=== PATIENT | female | born 1965 | race Caucasian/White ===

== ENCOUNTER → 2020-12-26 16:16 | Outpatient (CLI) | payer OTHER, SELFPAY ==
--- NOTE | 2020-12-26 16:18 | US_ITS ---
STUDY: ULTRASOUND OF THE FEMALE PELVIS - COMPLETE REASON FOR EXAM: Female, 55 years old. abnormal uterine bleeding LMP: Unknown. TECHNIQUE: Transabdominal and Transvaginal TECHNICAL QUALITY: Adequate. COMPARISON: None. FINDINGS: The uterus is in a midline position. The uterus measures 10.3 x 6.7 x 5.0 cm. Normal uterine cervix. The endometrium measures 4.1 mm in thickness, and is hyperechoic. There is no demonstrated endometrial mass. Diffusely heterogeneous uterine myometrium with small subendometrial cysts measuring 2-3 mm. A discrete myometrial mass is not confirmed on the provided images, however. I.U.D. - The patient does not have an I.U.D. The right ovary is non-visualized. No adnexal masses. The left ovary is non-visualized. No adnexal masses. There is no fluid in the cul-de-sac. Visualized urinary bladder is unremarkable. US/Transvaginal Non- IMPRESSION: 1. Diffusely heterogeneous uterine myometrium with small (2-3 mm) subendometrial cysts raises possibility of adenomyosis but can also be seen in uterine fibroids. Evaluation with pelvic MRI without and with IV contrast suggested for better characterization. 2. No discrete endometrial mass. 3. Nonvisualized ovaries. Electronically Signed: Magno Kaiser MD ([place]) at 9:46 EDT , Service support ,
--- NOTE | 2020-12-26 16:18 | US_ITS ---
STUDY: ULTRASOUND OF THE FEMALE PELVIS - COMPLETE REASON FOR EXAM: Female, 55 years old. abnormal uterine bleeding LMP: Unknown. TECHNIQUE: Transabdominal and Transvaginal TECHNICAL QUALITY: Adequate. COMPARISON: None. FINDINGS: The uterus is in a midline position. The uterus measures 10.3 x 6.7 x 5.0 cm. Normal uterine cervix. The endometrium measures 4.1 mm in thickness, and is hyperechoic. There is no demonstrated endometrial mass. Diffusely heterogeneous uterine myometrium with small subendometrial cysts measuring 2-3 mm. A discrete myometrial mass is not confirmed on the provided images, however. I.U.D. - The patient does not have an I.U.D. The right ovary is non-visualized. No adnexal masses. The left ovary is non-visualized. No adnexal masses. There is no fluid in the cul-de-sac. Visualized urinary bladder is unremarkable. US/Pelvic (Non ) IMPRESSION: 1. Diffusely heterogeneous uterine myometrium with small (2-3 mm) subendometrial cysts raises possibility of adenomyosis but can also be seen in uterine fibroids. Evaluation with pelvic MRI without and with IV contrast suggested for better characterization. 2. No discrete endometrial mass. 3. Nonvisualized ovaries. Electronically Signed: Magno Kaiser MD ([place]) at 9:46 EDT , Service support ,
== END ==
PROVIDERS: PCP Family Medicine; Referring Provider Nurse Practitioner Women's Health; Visit Provider Nurse Practitioner Women's Health
DX: N95.0 Postmenopausal bleeding (principal)
CPT/HCPCS: 76830; 76856

== ENCOUNTER → 2021-02-24 15:51 | Outpatient (CLI) | payer OTHER, SELFPAY ==
--- NOTE | 2021-02-24 15:54 | US_ITS ---
STUDY: ULTRASOUND OF THE FEMALE PELVIS - COMPLETE REASON FOR EXAM: Female, 55 years old. PMB TECHNIQUE: Endovaginal. Transvaginal US was obtained to better visualized the ovaries. COMPARISON: 12.26.20 FINDINGS: The uterus is retroflexed and is in a midline position. The uterus measures 7.5x7.2 cm. There is a Nabothian cyst of the cervix. The endometrium measures 3.5 mm in thickness, and is hyperechoic. There is no demonstrated endometrial mass. Fibroid measures 12 x 9 mm. I.U.D. - The patient does not have an I.U.D. cystic area in the myometrium measures 4 x 3 mm. The right ovary is visualized. The right ovary measures 2 x 1.4 cm. There is no right ovarian cyst or ovarian mass. There is no visualized right adnexal mass or complex lesion. There is normal arterial and normal venous vascularity. The left ovary is visualized. The left ovary measures 3 x 1.4 cm. There is no left ovarian cyst or ovarian mass. There is no visualized left adnexal mass or complex lesion. There is normal arterial and normal venous vascularity. There is no fluid in the cul-de-sac. Urinary bladder is 392 cc. US/Transvaginal Non- IMPRESSION: There are Nabothian cysts of the cervix. Fibroid uterus. The urinary bladder is distended. This can suggest urinary retention. Electronically Signed: Brandon Mendoza MD at 20:57 EST , Service support ,
--- NOTE | 2021-02-24 15:54 | US_ITS ---
STUDY: ULTRASOUND OF THE FEMALE PELVIS - COMPLETE REASON FOR EXAM: Female, 55 years old. PMB TECHNIQUE: Endovaginal. Transvaginal US was obtained to better visualized the ovaries. COMPARISON: 12.26.20 FINDINGS: The uterus is retroflexed and is in a midline position. The uterus measures 7.5x7.2 cm. There is a Nabothian cyst of the cervix. The endometrium measures 3.5 mm in thickness, and is hyperechoic. There is no demonstrated endometrial mass. Fibroid measures 12 x 9 mm. I.U.D. - The patient does not have an I.U.D. cystic area in the myometrium measures 4 x 3 mm. The right ovary is visualized. The right ovary measures 2 x 1.4 cm. There is no right ovarian cyst or ovarian mass. There is no visualized right adnexal mass or complex lesion. There is normal arterial and normal venous vascularity. The left ovary is visualized. The left ovary measures 3 x 1.4 cm. There is no left ovarian cyst or ovarian mass. There is no visualized left adnexal mass or complex lesion. There is normal arterial and normal venous vascularity. There is no fluid in the cul-de-sac. Urinary bladder is 392 cc. US/Pelvic (Non ) IMPRESSION: There are Nabothian cysts of the cervix. Fibroid uterus. The urinary bladder is distended. This can suggest urinary retention. Electronically Signed: Brandon Mendoza MD at 20:57 EST , Service support ,
== END ==
PROVIDERS: PCP Family Medicine; Referring Provider Obstetrics & Gynecology; Visit Provider Obstetrics & Gynecology
DX: N95.0 Postmenopausal bleeding (principal)
CPT/HCPCS: 76830; 76856

== ENCOUNTER 2021-06-20 17:15 | Outpatient (CLI) | payer OTHER, SELFPAY ==
--- NOTE | 2021-06-20 16:47 | BI_ITS ---
MAMMOGRAPHY - BILATERAL SCREENING REASON FOR EXAM: Female, 55 years old. Routine annual screening examination. PERTINENT HISTORY: Non-contributory. TECHNIQUE: Digital bilateral breast kalen (3D mammographic acquisition) in the CC and MLO projections. 2-D mediolateral oblique (MLO) and craniocaudad (CC) views of both breasts were obtained. CAD: Full Field Digital Mammography with Computer Added Detection was performed. COMPARISON: Comparison is made with prior outside examination dated 03/20/2017. FINDINGS: Breast Composition: The breasts are heterogeneously dense, which may obscure small masses. There are no dominant masses or suspicious calcifications. Stable benign-appearing bilateral axillary lymph nodes. No other significant abnormalities are identified. There has been no significant change since the prior study. BI/SCRN MAMM (CAD)W/KALEN BILAT IMPRESSION: Stable bilateral screening mammogram. Yearly follow-up mammogram recommended. (A) ASSESSMENT CATEGORY: BIRADS Category 1: Negative. A letter regarding these results will be sent to the patient by the facility within 30 days. Approximately 10% of breast cancers are not detected by mammography. A normal mammogram should not delay biopsy of a clinically suspicious abnormality. [id number] Electronically Signed: Winston Yi MD at 8:37 EST ,
== END 2021-06-20 23:59 | disposition home or self-care (01) ==
LOC: OPBI 06-21 07:33
PROVIDERS: PCP Family Medicine; Visit Provider Nurse Practitioner Women's Health
DX: Z12.31 Encounter for screening mammogram for malignant neoplasm of breast (principal)
CPT/HCPCS: 77063; 77067

== ENCOUNTER → 2022-01-29 | Outpatient (CLI) | payer OTHER, SELFPAY ==
--- NOTE | 2022-01-29 18:30 | US_ITS ---
STUDY: THYROID ULTRASOUND REASON FOR EXAM: Female, 56 years old. Abnormal thyroid function tests TECHNIQUE: Ultrasound evaluation of the thyroid was performed with real-time and static clayton-scale imaging. COMPARISON: None. FINDINGS: RIGHT LOBE: The right lobe of the thyroid gland measures 4 x 1.2 x 0.9 cm. There is a homogeneous echotexture. There is a anechoic 3 mm cyst. No suspicious solid hypoechoic nodule LEFT LOBE: The left lobe of the thyroid gland measures 5 x 2.4 x 1.8 cm. There is a homogeneous echotexture. There are 2 separate solid/cystic complex nodules with microcalcifications, larger measures 4.3 x 2.7 x 1.8 cm, smaller 1.5 x 1.1 x 0.6 cm. ISTHMUS: The isthmus measures 1.4 mm. The regional lymph nodes are normal. US/Thyroid IMPRESSION: Homogeneous thyroid gland with solid/cystic nodules in the left lobe and simple cyst in the right lobe. No suspicious solid nodule noted. No specific follow-up needed. Electronically Signed: Avni Sahni MD at 9:35 EDT ,
== END | disposition home or self-care (01) ==
LOC: US 18:26
PROVIDERS: PCP Family Medicine
DX: E04.2 Nontoxic multinodular goiter (principal)
CPT/HCPCS: 76536

== ENCOUNTER → 2022-06-25 | Outpatient (CLI) | payer OTHER, SELFPAY ==
[2022-06-25 15:22] LABS: Absolute Lymphocyte Count 1.52 X10^3/uL (0.83-4.51); Absolute Neutrophil Count 5.5 X10^3/uL (2.0-7.7); Basophil# 0.04 X10^3/uL; Basophil% 0.5 % (0-1); Eosinophil# 0.19 X10^3/uL; Eosinophils% 2.4 % (0-5); Hematocrit 49.6 % (37-47); Hemoglobin 16.4 g/dL (12.0-15.0); Lymphocyte # 1.52 X10^3/ul (0.83-4.51); Lymphocyte % 19.4 % (19-41); Mean Corp Hgb Conc 33.1 g/dL (32-36); Mean Corpuscular Hgb 31.1 pg (27.0-32.0); Mean Corpuscular Volume 94.1 fL (81-99); Mean Platelet Vol. 10.5 fl (6.2-12.0); Monocyte# 0.62 X10^3/uL; Monocyte% 7.9 % (0-10); NRBC Flagged by Analyzer 0 % (0-5); Neutrophil # 5.45 X10^3/uL (2.7-7.7); Neutrophil % 69.5 % (47-70); Platelet Count 399 K/mm3 (150-450); RBC Distribution Width CV 14.6 % (11.6-14.6); RBC Distribution Width SD 50.6 fl (35.1-43.9); Red Blood Count 5.27 M/mm3 (4.2-5.4); White Blood Count 7.8 K/mm3 (4.4-11.0)
[2022-06-25 15:40] LABS: ALB/GLOB Ratio 0.7 RATIO (0.9-2.4); AST(SGOT) 38 U/L (15-37); Alanine Aminotransfer ALT/SGPT 39 U/L (13-56); Albumin, Serum 3.3 g/dL (3.2-5.0); Alkaline Phosphatase 110 U/L (45-117); Anion Gap 10 (5-15); BUN 18 mg/dL (7-18); BUN/Creat Ratio 21.8 RATIO (10-20); Calcium,Total 9.3 mg/dL (8.5-10.1); Chloride 103 mmol/L (98-107); Creatinine, Serum 0.82 mg/dL (0.55-1.02); EST Glomerular Filtration Rate 76 mL/min (>60); Est Glom Filt Rate - Afr Amer 92 mL/min (>60); Glucose 94 mg/dL (74-106); Protein, Total 8.3 g/dL (6.4-8.2); Sodium Level 136 mmol/L (136-145)
== END | disposition home or self-care (01) ==
LOC: MFPLAB 11:56
PROVIDERS: PCP Family Medicine; Visit Provider Family Medicine
DX: Z01.818 Encounter for other preprocedural examination (principal)
CPT/HCPCS: 36415; 80053; 85025

== ENCOUNTER 2022-06-28 12:28 | Day surgery (SDC) | payer OTHER, SELFPAY ==
--- NOTE | 2022-06-25 12:37 | RAD_ITS ---
STUDY: X-RAY CHEST REASON FOR EXAM: Female, 56 years old. Preop for pelvic surgery TECHNIQUE: PA and 2 lateral views of the chest. COMPARISON: None. FINDINGS: The lungs are clear and expanded. There is no demonstrated pleural abnormality. Normal size heart. Normal mediastinum and tricia. Normal visualized pulmonary arteries. Normal visualized aortic arch and descending thoracic aorta. Normal visualized thoracic spine. Normal visualized ribs, clavicles, and shoulders. There is no demonstrated abnormality of the visualized soft tissue structures of the upper abdomen. RAD/Chest PA and Lateral IMPRESSION: Normal x-ray examination of the chest. Electronically Signed: Avni Sahni MD at 13:00 EDT ,
[2022-06-26 09:52] LABS: Thyroid Stim Hormone (TSH) 1.21 uIU/mL (0.358-3.74)
[2022-06-28] VITALS (8 sets, daily range): BP systolic 128–151; BP diastolic 66–86; PULSE 64–93; RESP 14–18; TEMP 36.2–36.9; O2SAT 95–100; BMI 37.5
--- NOTE | 2022-06-28 12:36 | DCINST_ITS ---
Discharge Instructions Diet Discharge Diet: No restrictions Activity Discharge Activity: May Shower (Please apply a cast bag prior to showering to keep dressings clean, dry, and intact to left lower extremity) and Use Crutches (Remain nonweightbearing to left lower extremity with use of crutches or knee scooter) Weight Bearing Status: No weight bearing (Please remain nonweightbearing to the left lower extremity with assistance of crutches or knee scooter) Keep extremity elevated above heart level: Left Leg (Elevate left lower extremity at all times of rest for postoperative edema control) Dressing / Incision Call your doctor if you observe: Fever of 101 or Higher, Chest pain, Calf discomfort and Uncontrolled pain Change Dressing in: do not change dressing (Physician will change dressings at first postoperative appointment) Remove Dressing in: leave in place till F/U (Physician will change dressings at first postoperative appointment) Cleanse incision/area with: Do not get Incision Wet (Please utilize cast bag prior to shower to keep dressings clean, dry, and intact to the left lower extremity) and Keep Dressing Clean & Dry Follow Up Care Please Follow Up With: Hood Quach DPM When: Patient has first postoperative appointment in office next week Test Results: Test results from this visit will be discussed in further detail at your follow- up appointment, if applicable. Discharge Plan Admission Attending Provider: Hood Quach Primary Care Provider: Carlos Cutler Consulting Providers: Jordana Fisher Discharge Orders/Prescriptions Prescriptions: New aspirin 325 mg tablet 325 mg PO DAILY Qty: 20 0RF doxycycline hyclate 100 mg capsule 100 mg PO DAILY Qty: 10 0RF oxycodone 5 mg capsule 5 mg PO Q6H PRN (Reason: pain) 7 Days Qty: 28 0RF acetaminophen 325 mg tablet 325 mg PO Q6H PRN (Reason: pain) Qty: 28 0RF Discontinued tramadol 50 mg Tablet 50 mg PO Q4H PRN (Reason: Pain) No Action levothyroxine 50 mcg capsule 50 mcg PO DAILY acetaminophen [Tylenol Ex Str Rapid Release] 500 mg Tablet 800 mg PO Q6H PRN (Reason: Pain) Referrals / Follow Up: Carlos Cutler MD [Primary Care Provider] - Disposition Disposition (needs filled in before D/C Order can be placed): Home, Self Care
--- NOTE | 2022-06-28 12:42 | EKG12_ITS ---
Test Reason : PRE-OP Blood Pressure : / mmHG Vent. Rate : 072 BPM Atrial Rate : 072 BPM P-R Int : 170 ms QRS Dur : 096 ms QT Int : 384 ms P-R-T Axes : 035 005 033 degrees QTc Int : 420 ms Normal sinus rhythm Normal ECG No previous ECGs available Confirmed by NASH MARINO, THERESA ([id number]), digital editor LIZ CHANEL ([id number]) on 07/03/2022 8:55:00 AM Referred By: Hood Quach Confirmed By:THERESA CAO MD
[2022-06-28] MEDS: Lactated Ringers 1,000 ML 15 ML IV (13:10)
--- NOTE | 2022-06-28 14:13 | RAD_ITS ---
STUDY: X-RAY - LEFT ANKLE REASON FOR EXAM: Female, 56 years old. Intraoperative digital documentation views. TECHNIQUE: 7 intraoperative digital documentation view(s) of the ankle. COMPARISON: None. FINDINGS: 7 intraoperative digital documentation views show placement of medial malleolar cancellus screws, lateral plate and screw fixation of the distal fibula and cancellus screw placed through the distal fibula at the tibiofibular syndesmotic region. RAD/Ankle 2 Views IMPRESSION: Intraoperative digital documentation.. Electronically Signed: Kirill Ennis, at 10:28 EDT ,
[2022-06-28] MEDS: Clindamycin 900 MG/50 ML BAG 75 MG IV (14:14)
[2022-06-28] MEDS: Lidocaine 1% (30 ml sdv) 30 ML Vial (16:02)
[2022-06-28] MEDS: Bupivacaine 0.25% 30 ML Vial (16:02)
--- NOTE | 2022-06-28 16:25 | RAD_ITS ---
INDICATION: Postoperative EXAMINATION/TECHNIQUE: X-RAY - LEFT XR Ankle Min 3 Views COMPARISON: None. FINDINGS: Mild subcutaneous edema.. Status post ORIF of the medial malleolus and the distal fibula. There is a splint in place. RAD/Ankle min 3 Views IMPRESSION: Status post ORIF with placement of a splint. Electronically Signed: Ajith Lopez DO at 17:02 EDT ,
--- NOTE | 2022-06-28 16:48 | OP.PCM_ITS ---
Problems Associated Problem List Diagnoses (1) Displaced bimalleolar fracture of left ankle: (2) Pain in left lower leg: Report of Operation Date of Procedure: 06/28/22 Pre-Operative Diagnosis: 1. Displaced bimalleolar fracture left ankle 2. Pain left lower extremity Post-Operative Diagnosis: 1. Displaced bimalleolar fracture left ankle 2. Pain left lower extremity Surgery/Procedure Performed:: ORIF of bimalleolar left ankle fracture Description of Surgical Findings:: See operative report for findings Surgeon: Hood Quach beaver trapper: El Issa DPM PGY-3 Type of Anesthesia: General/Regional (Popliteal block left leg) and Local (Sural nerve block 10 cc one-to-one mixture 1% lidocaine plain 0.25% Marcaine plain) Special Medications: None Specimen's removed: None Drains: None Estimated Blood Loss (mL): < 5mL Description of Procedure: HPI/indication: Patient is a 56-year-old female who presents to the office following fracture of her left ankle. She reports date of injury was 06/15/2022 when she was going up a step she planted the foot twisted to look behind her to go back down the stairs that she had forgotten something with her foot slipping off the edge rolling the ankle. Patient denied falling but had immediate pain and difficulty weightbearing. She went to the emergency department in [facility] where radiographs were performed demonstrating fracture of her left ankle. She was reduced and placed into a posterior splint sugar-tong cast. She presents to office because the providers where she lives were not within her HMO network. While in office on 06/20/2022 radiographs were obtained of the left ankle demonstrating near anatomic reduction of the fibular fracture with displaced medial malleolar fracture. I discussed with patient the need for surgical intervention to reduce fracture fragments and realign the ankle into anatomic position. Patient was in agreement with this. I discussed with her that this would be a nonelective procedure necessary in order to position the ankle into anatomic position and allow the fracture fragments to heal. Discussed the procedure in great detail. I reviewed the rationale of the proc edure with the patient in great detail. We discussed all possible benefits versus risks and potential complications in detail. Advised the patient the risk include but are not limited to the following: Pain, continued pain, complex regional pain syndrome, deformity, continue deformity, recurrence, overcorrection, under correction, neuritis/numbness, swelling, scarring, poor cosmetic result, dehiscence, delayed healing/nonhealing, bleeding, hardware failure, symptomatic hardware, need for further surgery/procedures, fracture, nonunion/delayed union, infection, blood clot, allergic reaction, postoperative arthritis, weakness, shoe gear problems, inability to walk, inability to wear shoes, stroke, heart attack, addiction to pain medication, loss of function, loss of limb, loss of life. Patient expressed understanding of these and was able to repeat these back. Patient in agreement with these. The typical postoperative course was reviewed. The patient expressed understanding and agre ement of the surgical plan. The consent forms were reviewed with the patient the patient signed them freely. No guarantees were given. No promises were made. Patient was cleared by PCP for surgical intervention. She was scheduled to undergo surgery at [facility] on 06/28/2022. I reviewed all diagnostic data and H&P prior to surgical intervention. Operative limb was signed prior to entering the OR. Procedure: Under mild sedation patient was brought into the operating placed on table in supine position. Following induction of general anesthesia a popliteal block was performed by the anesthesia team and a pneumatic thigh tourniquet was placed about the patient's left thigh. A bump was placed under the left hip and a blanket bump was placed under the left lower extremity. The left leg was then scrubbed, prepped, and draped in the usual aseptic manner. An Esmarch bandage was utilized to exsanguinate the left lower extremity and the pneumatic thigh tourniquet was inflated to 300 mmHg. At this time attention was directed to the left ankle where incision placement was guided by fluoroscopic imaging in multiple views secondary to size of patient leg. A linear incision was made overlying the distal aspect fibula utilizing a #15 blade. Incision was deepened utilizing sharp and blunt dissection. Care was taken to identify all vital neurovascular structures and retract and protect them throughout the duration of this case. Once down to the level of the fracture an incision was made through the fracture site and debridement was performed of hematoma between fracture fragments utilizing a curette. A pointed reduction clamp was utilized to reduce the fibular fracture with reduction confirmed in multiple fluoroscopic views. Next, following AO principle a 3.5 mm x 26 mm cortical lag screw/interfragmentary screw was placed across the fracture site. Pointed reduction clamp was removed and fracture noted to be reduced in multiple fluoroscopic views. Next, an Arthrex left locking titanium 6-hole distal fibular plate was applied to the fibula and temporarily fixated using 2 threaded olive wires, 1 distal and 1 proximal. Position of the plate was confirmed multiple fluoroscopic views. Following AO principles the distal holes of the plate below the level of the fracture underwent placement of 4 titanium locking screws consisting of three 3.0 mm x 12 mm and one 3.0 mm x 14 mm locking screw. Following AO principles a 3.5 mm x 14 mm titanium locking screw was placed in the whole above the interfragmentary screw and continuing to move approximately the oblong hole was filled with a 3.5 mm x 12 mm titanium cortical screw in the 2 holes above the oblong hole were filled with two 3.5 mm x 12 mm titanium locking screws. Fixation was viewed in multiple fluoroscopic views and deemed excellent. Next, attention was directed to the medial malleolus where a J shaped incision was placed overlying the medial malleolus/fracture site. Incision was deepened utilizing sharp and blunt dissection with care taken to identify and retract all vital neurovascular structures. Once at the level of the fracture site the fracture was incised and debrided of all hematoma and soft tissue between the fracture fragments utilizing a curette and sharp dissection. Next the fracture fragment was reduced utilizing a pointed reduction clamp with reduction confirmed multiple fluoroscopic views. At this time following AO principles the fracture was fixated utilizing two 4.0 mm x 54 mm titanium cannulated cancellous screws placed perpendicular in AP view and parallel and lateral view. Reduction of the fracture fragment was viewed in multiple fluoroscopic views and deemed excellent. All incision sites were flushed with copious amounts of normal sterile saline. At this time a hook test was performed of the fibula which was negative for syndesmotic instability. Final fluoroscopic images of the reduction were reviewed prior to closure. The deep tissue layer of the medial incision was closed utilizing 2-0 Vicryl. The subcutaneous tissue was closed utilizing 4-0 Monocryl and the skin was reapproximated with a 3-0 Prolene in simple interrupted fashion. The deep tissue of the lateral incision was closed utilizing a 2-0 Vicryl. The subcutaneous tissue was closed utilizing 4-0 Monocryl and the skin reapproximated with a 3-0 Prolene in simple interrupted fashion. At this time the pneumatic thigh tourniquet was deflated and a prompt hyperemic response was noted to the digits of the left foot. A local anesthetic block was delivered to the sural nerve consisting of 10 cc of a one-to-one mixture of 1% lidocaine plain and 0.25% Marcaine plain. Incision sites were then dressed with Betadine soaked Adaptic, 4 x 4 gauze, ABD x2, Kerlix, Webril, 4 inch Yunior wrapped and 6 inch Yunior wrap. A well molded posterior splint was applied to the left lower extremity and anchored with a 4 inch Yunior wrap and a 6 inch Yunior wrap. The patient tolerated the procedure and anesthesia well was transported to PACU with vital signs stable and vascular status intact to the left digits. Immediate postoperative films were obtained in PACU and reviewed prior to l eaving. She was given discharge instructions to remain nonweightbearing to the left lower extremity with assistance of her crutches and knee scooter. She was instructed to leave dressings clean, dry, and intact to the left lower extremity and utilize cast bag when showering. She has scheduled first postoperative visit in office with me next week. Grafts/Implants Used: Arthrex plate and screws Complications None Admit VTE Documentation VTE Present on Admission: No VTE Mechan Device Prophylaxis: SCD's VTE Pharm Prophylaxis ordered?: Yes
== END 2022-06-28 19:04 | disposition home or self-care (01) ==
LOC: SDC 12:29 → AC 12:30
PROVIDERS: Anesthesiology; PCP Family Medicine; Referring Provider Student in an Organized Health Care Education/Training Program; Visit Provider Student in an Organized Health Care Education/Training Program
PROC: (CPT 27814; principal; 2022-06-28 13:40)
DX: S82.842A Displaced bimalleolar fracture of left lower leg, initial encounter for closed fracture (principal); W18.43XA Slipping, tripping and stumbling without falling due to stepping from one level to another, initial encounter; E03.9 Hypothyroidism, unspecified; Z79.890 Hormone replacement therapy; Z79.899 Other long term (current) drug therapy; Z86.718 Personal history of other venous thrombosis and embolism; Z90.81 Acquired absence of spleen
CPT/HCPCS: 27814; 01480; 64450; 71046; 73600; 73610; 76000; 84443; 93005; C1713; J7120; J2405

== ENCOUNTER → 2023-06-24 | Outpatient (CLI) | payer OTHER, SELFPAY ==
--- NOTE | 2023-06-24 15:34 | BI_ITS ---
MAMMOGRAPHY - BILATERAL SCREENING REASON FOR EXAM: Female, 57 years old. Routine annual screening examination. PERTINENT HISTORY: Non-contributory. TECHNIQUE: Digital bilateral breast kalen (3D mammographic acquisition) in the CC and MLO projections. 2-D mediolateral oblique (MLO) and craniocaudad (CC) views of both breasts were obtained. CAD: Full Field Digital Mammography with Computer Added Detection was performed. COMPARISON: Comparison is made with prior study June 20, 2021. FINDINGS: Breast Composition: The breasts are heterogeneously dense, which may obscure small masses. There are no dominant masses or suspicious calcifications. Stable benign-appearing bilateral axillary lymph nodes. No other significant abnormalities are identified. There has been no significant change since the prior study. BI/SCRN MAMM (CAD)W/KALEN BILAT IMPRESSION: Stable bilateral screening mammogram. Yearly follow-up mammogram recommended. (A) ASSESSMENT CATEGORY: BIRADS Category 2: Benign. A letter regarding these results will be sent to the patient by the facility within 30 days. Approximately 10% of breast cancers are not detected by mammography. A normal mammogram should not delay biopsy of a clinically suspicious abnormality. [id number] Electronically Signed: Winston Yi MD at 8:51 EDT ,
--- OUTSIDE RECORDS SUMMARY | 2023-06-24 20:41 | XMS RPT_ITS | CCD ---
Author Name Unknown Address [address] [place] [address] Organization [facility] Care Team Providers Care Agribusiness Professor Name Role Phone He, Edgar Leona Unavailable [phone] Tourlas, Jose Unavailable Unavailabl e He, Edgar Unavailable Unavailable Tourlas, Jose Unavailable Unavailabl e He, Edgar Unavailable Unavailable He, Edgar Unavailable Unavailable He, Edgar Unavailable Unavailable He, Edgar Unavailable Unavailable He, Edgar Unavailable Unavailable He, Edgar Unavailable Unavailable He, Edgar Unavailable Unavailable He, Edgar Unavailable Unavailable He, Edgar Unavailable Unavailable He, Edgar Unavailable Unavailable He, Edgar Unavailable Unavailable He, Edgar Unavailable Unavailable He, Edgar Unavailable Unavailable He, Edgar Unavailable Unavailable He, Edgar Unavailable Unavailable He, Edgar Unavailable Unavailable He, Edgar Unavailable Unavailable He, Edgar Unavailable Unavailable He, Edgar Unavailable Unavailable He, Edgar Unavailable Unavailable He, Edgar Unavailable Unavailable He, Edgar Unavailable Unavailable He, Edgar Unavailable Unavailable He, Edgar Unavailable Unavailable He, Edgar Unavailable Unavailable He, Edgar Unavailable Unavailable He, Edgar Unavailable Unavailable Tona Washington Unavailable Unavailable WashingtonBriana Gardenia Unavailable Unavailable He, Edgar Leona Unavailable Unavailable He, Edgar Leona Unavailable Unavailable He, Edgar Leona Primary Care Provider [phone] TONA WASHINGTON Attending Unavailable TONA WASHINGTON Referring Unavailable HE, EDGAR LEONA Primary Care Unavailable He, Edgar L Unavailable Unavailable He, Edgar Leona Primary Care Provider [phone] JANINA TORRES Attending Unava ilable EH, EDGAR LEONA Primary Care Unavailable Edgar Cutler MD Primary Care Provider Edgar Cutler MD Primary Care Provider Edgar Cutler Unavailable Calixto Monte Unavailable Unavailable He Edgar Harvey Unavailable Unavailable Unavailable He, Dr. Edgar Kim Primary Care Unavailab le Mell, Dr. Calixto Brandon Attending Unavaila ble Main, Dr. Rudy Edmonds Attending Yesica vailable He, Dr. Edgar Kim Primary Care Unavailab le He, Dr. Edgar Kim Primary Care Unavailab le Main, Dr. Rudy Edmonds Attending Yesica vailable He, Dr. Edgar Kim Primary Care Unavailab le Main, Dr. Rudy Edmonds Attending Yesica vailable He, Dr. Edgar Kim Primary Care Unavailab le Main, Dr. Rudy Edmonds Attending Yesica vailable He, Dr. Edgar Kim Primary Care Unavailab le Main, Dr. Rudy Edmonds Attending Yesica vailable He, Dr. Edgar Kim Primary Care Unavailab le Main, Dr. Rudy Edmonds Attending Yesica vailable He, Dr. Edgar Kim Primary Care Unavailab le Main, Dr. Rudy Edmonds Attending Yesica vailable He, Dr. Edgar Kim Primary Care Unavailab le Mian, Dr. Rudy Edmonds Attending Yesica vailable He, Dr. Edgar Kim Primary Care Unavailab le Main, Dr. Rudy Edmonds Attending Yesica vailable He, Dr. Edgar Kim Primary Care Unavailab le Main, Dr. Rudy Edmonds Attending Yesica vailable Main, Dr. Rudy Edmonds Attending Yesica vailable He, Dr. Edgar Kim Primary Care Unavailab le He, Dr. Edgar Kim Primary Care Unavailab le Main, Dr. Rudy Edmonds Attending Yesica vailable He, Dr. Edgar Kim Primary Care Unavailab le Main, Dr. Rudy Edmonds Attending Yesica vailable He, Dr. Edgar Kim Primary Care Unavailab carlton Quach, Dr. Rudy Edmonds Attending Yesica vailable Main, Dr. Rudy Edmonds Attending Yesica vachloé Cutler, Dr. Edgar Kim Primary Care Unavailab carlton Cutler, Dr. Edgar Kim Primary Care Unavailab carlton Quach Jr, Dr. Hood Avelar Attending Unavailable Edgar Cutler MD Primary Care Provider Edgar Cutler MD Primary Care Provider EDGAR CUTLER Attending Unavailable EDGAR CUTLER Primary Care Unavailable EDGAR CUTLER Attending Unavailable EDGAR CUTLER Primary Care Unavailable EDGAR CUTLER Referring Unavailable EDGAR CUTLER Primary Care Unavailable EDGAR CUTLER Primary Care Unavailable TATYANA SALINAS Attending UnavailEDGAR Fernandez Primary Care Unavailable TATYANA SALINAS Attending UnavailEdgar Fernandez MD Unavailable Allergies Allergy Classification Reported Allergen(s) Allergy Type Date of Onset Reaction(s) Facility (12 sources) Penicillins; Translations: [penicillins] Propensity to adverse reactions to drug 6 [facility] Work Phone: (1 source) fluocinolone; Translations: [fluocinolone topical] Drug Allergy [facility] Repository (1 source) pneumococcal vaccine; Translations: [pneumococcal 23-polyvalent vaccine] Drug Allergy [facility] Repository (6 sources) fluocinolone; Translations: [FLUOCINOLONE] Drug Allergy 1 [facility] (1 source) Penicillins Propensity to adverse reactions to drug 6 [place] (6 sources) Pneumococcal vaccine; Translations: [PNEUMOCOCCAL VACCINE] Drug Allergy 1 [facility] (6 sources) Penicillins Propensity to adverse reactions to drug 6 Other [place] (1 source) Penicillin Drug Allergy Other [facility] Medications Current Medications Medication Drug Class(es) Dates Sig (Normalized) Sig (Original) acetaminophen 325 mg / oxyCODONE hydrochloride 5 mg oral tablet (1 source) Opioid Agonist Start: 06-16-2022 End: 06-18-2022 take 1 tablet by mouth every six hours oxycodone-acetamino phen 5 mg-325 mg oral tablet ; 1 tab(s) orally every 6 hours Quantity: 12 Refills: 0 Ordered: 15-Jun-2022 Calixto Monte Start: 15-Jun-2022 End: 17-Jun-2022 Generic Substitution Allowed Comments: Caution federal law prohibits the transfer of this drug to any person other than the person for whom it was prescribed.May cause drowsiness. Alcohol may intensify this effect. Use care when operating dangerous machinery.This prescription cannot be refilled.This product contains acetaminophen. Do not use with any other product containing acetaminophen to prevent possible liver damage.Using more of this medication than prescribed may cause serious breathing problems. Completed/Discontinued Medications Medication Drug Class(es) Dates Sig (Normalized) Sig (Original) kjvc-IE-vpb-epa-FAD -NADH-be-mv 1.5 mg iron- 8.73 mg CpID (2 sources) End: 02-20-2019 nvln-OO-coj-epa-FAD- NADH-be-mv 1.5 mg iron- 8.73 mg CpID Take by mouth. 0 02/20/2019 Discontinued (Discontinued by another clinician) Problems Active Problems Problem Classification Problem Date Documented Da te Episodic/Chronic Other lower respiratory disease (14 sources) Cough; Translations: [Cough] Episodic Other lower respiratory disease (2 sources) Apnea, not elsewhere classified; Translations: [Apnea, not elsewhere classified] Onset: 03-15-2023 Episodic Other non-traumatic joint disorders (15 sources) Ankle pain; Translations: [Pain in joint, ankle and foot] 06-16-2022 Episodic Past or Other Problems Problem Classification Problem Date Documented Da te Episodic/Chronic Allergic reactions (1 source) Allergy status to penicillin; Translations: [Allergy status to penicillin] Onset: 06-16-2022 Episodic E Codes: Fall (1 source) Fall (on) (from) other stairs and steps, initial encounter; Translations: [Fall (on) (from) other stairs and steps, initial encounter] Onset: 06-16-2022 Episodic Fracture of lower limb (20 sources) Closed bimalleolar fracture; Translations: [Bimalleolar fracture, closed] Onset: 06-16-2022 06-16-2022 Episodic Other injuries and conditions due to external causes (1 source) Unspecified injury of left ankle, initial encounter; Translations: [Unspecified injury of left ankle, initial encounter] Onset: 06-16-2022 Episodic Spondylosis; intervertebral disc disorders; other back problems (1 source) Dorsalgia, unspecified; Translations: [Dorsalgia, unspecified] Onset: 06-16-2022 Episodic Unclassified (3 sources) Onset: 02-28-2023 02-28-2023 Results Test Name Value Interpretation Reference Range Facil ity Vital Signs Date Time Vital Sign Value Performing Clinician Facility 06-17-2023 15:13-0500 Body mass index (BMI) [Ratio] 38.02 kg/m2 Edgar Cutler MD Work Phone: [facility] 06-17-2023 15:13-0500 Body temperature 96.49 [degF] Edgar Cutler MD Work Phone: [facility] 06-17-2023 15:13-0500 Body weight 110.13 kg Edgar Cutler MD Work Phone: [facility] 06-17-2023 15:13-0500 Diastolic blood pressure 78 mm[Hg] Edgar Cutler MD Work Phone: [facility] 06-17-2023 15:13-0500 Heart rate 52 /min dEgar Cutler MD Work Phone: [facility] 06-17-2023 15:13-0500 SaO2% (BldA) [Mass fraction] 96 % Edgar Cutler MD Work Phone: [facility] 06-17-2023 15:13-0500 Systolic blood pressure 124 mm[Hg] Edgar Cutler MD Work Phone: [facility] 04-03-2023 20:44-0500 Body height 170.2 cm [facility] 04-03-2023 20:44-0500 Body mass index (BMI) [Ratio] 36.59 kg/m2 [facility] 04-03-2023 20:44-0500 Body temperature 96.3 [degF] [facility] 04-03-2023 20:44-0500 Body weight 106 kg [facility] 04-03-2023 20:44-0500 Diastolic blood pressure 70 mm[Hg] [facility] 04-03-2023 20:44-0500 Systolic blood pressure 141 mm[Hg] [facility] 02-28-2023 15:22-0500 Body height 170.2 cm Edgar Cutler MD Work Phone: [facility] 02-28-2023 15:22-0500 Body mass index (BMI) [Ratio] 36.49 kg/m2 Edgar Cutler MD Work Phone: [facility] 02-28-2023 15:22-0500 Body temperature 97 [degF] Edgar Cutler MD Work Phone: [facility] 02-28-2023 15:22-0500 Body weight 105.69 kg Edgar Cutler MD Work Phone: [facility] 02-28-2023 15:22-0500 Diastolic blood pressure 78 mm[Hg] Edgar Cutler MD Work Phone: [facility] 02-28-2023 15:22-0500 Heart rate 77 /min Edgar Cutler MD Work Phone: [facility] 02-28-2023 15:22-0500 Systolic blood pressure 136 mm[Hg] Edgar Cutler MD Work Phone: [facility] 02-22-2023 14:49-0500 Diastolic blood pressure 82 mm[Hg] Tatyana Salinas RESEARCH PSYCHOLOGIST Work Phone: [place] 02-22-2023 14:49-0500 Heart rate 67 /min Tatyana Salinas RESEARCH PSYCHOLOGIST Work Phone: [place] 02-22-2023 14:49-0500 Systolic blood pressure 135 mm[Hg] Tatyana Salinas RESEARCH PSYCHOLOGIST Work Phone: [place] 02-22-2023 14:38-0500 Body mass index (BMI) [Ratio] 37.89 kg/m2 Tatyana Salinas RESEARCH PSYCHOLOGIST Work Phone: [place] 02-22-2023 14:38-0500 Body weight 109.72 kg Tatyana Salinas RESEARCH PSYCHOLOGIST Work Phone: [place] 02-19-2022 15:11-0500 Diastolic blood pressure 74 mm[Hg] Tatyana Salinas RESEARCH PSYCHOLOGIST Work Phone: [place] 02-19-2022 15:11-0500 Systolic blood pressure 134 mm[Hg] Tatyana Salinas RESEARCH PSYCHOLOGIST Work Phone: [place] 02-19-2022 15:08-0500 Body height 170.2 cm Tatyana Salinas RESEARCH PSYCHOLOGIST Work Phone: [place] 02-19-2022 15:08-0500 Body mass index (BMI) [Ratio] 36.18 kg/m2 Tatyana Salinas RESEARCH PSYCHOLOGIST Work Phone: [place] 02-19-2022 15:08-0500 Body weight 104.78 kg Tatyana Salinas RESEARCH PSYCHOLOGIST Work Phone: [place] 02-19-2022 15:08-0500 Heart rate 56 /min Tatyana Salinas RESEARCH PSYCHOLOGIST Work Phone: [place] 02-20-2021 07:58-0500 Body height 170.2 cm Tatyana Salinas RESEARCH PSYCHOLOGIST Work Phone: [place] 02-20-2021 07:58-0500 Body mass index (BMI) [Ratio] 34 kg/m2 Tatyana Salinas RESEARCH PSYCHOLOGIST Work Phone: [place] 02-20-2021 07:58-0500 Body weight 98.48 kg Tatyana Salinas RESEARCH PSYCHOLOGIST Work Phone: [place] 02-20-2021 07:58-0500 Diastolic blood pressure 81 mm[Hg] Tatyana Salinas RESEARCH PSYCHOLOGIST Work Phone: [place] 02-20-2021 07:58-0500 Heart rate 64 /min Tatyana Salinas RESEARCH PSYCHOLOGIST Work Phone: [place] 02-20-2021 07:58-0500 Systolic blood pressure 124 mm[Hg] Tatyana Salinas RESEARCH PSYCHOLOGIST Work Phone: [place] 02-22-2020 08:04-0500 BMI (Body Mass Index) 34.3 kg/m2 Tatyana Salinas [place] 02-22-2020 08:04-0500 Body weight 99.34 kg Tatyana Salinas [place] 02-22-2020 08:04-0500 BP Diastolic 80 mm[Hg] Tatyana Salinas [facility] 02-22-2020 08:04-0500 BP Systolic 133 mm[Hg] Tatyana Salinas [place] 02-22-2020 08:04-0500 Height 170.2 cm Tatyana Salinas [place] 02-22-2020 08:04-0500 Pulse (Heart Rate) 61 /min Tatyana Salinas [facility] 02-20-2019 08:07-0500 BMI (Body Mass Index) 27.72 kg/m2 Tona Washington [facility] 02-20-2019 08:07-0500 Body weight 80.29 kg Tona Washington [facility] 02-20-2019 08:07-0500 BP Diastolic 70 mm[Hg] Tona Washington [place] 02-20-2019 08:07-0500 BP Systolic 108 mm[Hg] Tona Washington [place] 02-20-2019 08:07-0500 Height 170.2 cm Tona Washington [place] 02-20-2019 08:07-0500 Pulse (Heart Rate) 66 /min Tona Washington [place] 02-13-2017 08:15-0400 BMI (Body Mass Index) 34.57 kg/m2 Tona Washington [place] Work Phone: 02-13-2017 08:15-0400 BP Diastolic 84 mm[Hg] Tona Washington [place] Work Phone: 02-13-2017 08:15-0400 BP Systolic 126 mm[Hg] Tona Washington [facility] Work Phone: 02-13-2017 08:15-0400 Height 170.2 cm Tona Washington [facility] Work Phone: 02-13-2017 08:15-0400 Pulse (Heart Rate) 64 /min Tona Washington [facility] Work Phone: 02-13-2017 08:15-0400 Weight 100.11 kg Tona Washington [facility] Work Phone: Encounters Encounter Date Encounter Type Care Provider Facility Start: 06-17-2023 End: 06-17-2023 Office outpatient visit 15 minutes Edgar Cutler MD Work Phone: [facility] Procedures Date Procedure Procedure Detail Performing Clinician Start: 03-15-2023 HOME SLEEP APNEA RAYMOND T (HSAT) EDGAR CUTLER Start: 02-28-2023 POCT RAPID STREP A GIOVANNI CUTLER Start: 02-28-2023 GROUP A STREPTOCOCCU S, CULTURE EDGAR CUTLER Start: 02-28-2023 Iaadiadoo streptococ cus group a Edgar Cutler MD Work Phone: Start: 06-26-2022 Thyrotropin [Units/v olume] in Serum or Plasma Edgar Cutler MD Work Phone: Start: 06-20-2021 Mammography Edgar khalil MD Work Phone: Start: 05-26-2020 Adult depression scr eening assessment [facility] Start: 05-26-2020 Microscopic observat ion [Identifier] in Cervix by Cyto stain Carie Mg Start: 02-12-2019 soft tissue head & neck real time imge docm Tona Deandra Washington Work Phone: Start: 09-23-2018 Microscopic observat ion [Identifier] in Cervix by Cyto stain Tona Washington Start: 03-20-2017 Mammography Tona Lorenzo Start: 02-28-2016 Colonoscopy Carie frances Plan of Treatment Date Care Activity Detail Author Start: 02-27-2026 Screening for malignant neoplasm of colon [place] Start: 05-26-2025 Screening for malignant neoplasm of cervix Pap Smear [place] Start: 06-15-2024 End: 06-15-2024 Patient encounter procedure 06/15/2024 4:20 PM EST Office Visit [facility] [address] [facility] [address] [place] [id number] Edgar Cutler MD [address] [facility] [place] [address] [place] [id number] [facility] Start: 01-14-2024 End: 02-23-2024 Thyrotropin [Units/volume] in Serum or Plasma TSH Lab Routine Nontoxic multinodular goiter Expected: 01/14/2024, Expires: 02/23/2024 [place] Work Phone: Immunizations Immunization Date Immunization Notes Care Provider Fa cili 03-13-2017 pneumococcal polysaccharide vaccine, 23 valent Edgar Cutler Work Phone: [facility] Work Phone: Payers Date Payer Category Payer Unknown 2014 Unknown [id number] 2014 Unknown [employer] PPO xxxxxxxxxxxx 2014-Present xxxxxxxxxxxx [id number] 2014 Unknown [id number] 1965 Unknown [id number] 2.16.840.1.489586.3.579.2.903 1965 Unknown [id number] 2.16.840.1.907641.3.579.2.903 1965 Unknown [id number] 2.16.840.1.249821.3.579.2.106 9 1965 Unknown [id number] 2.16.840.1.272178.3.579.2.106 9 1965 Unknown [id number] 2.16.840.1.494470.3.579.2.106 9 1965 Unknown [id number] 2.16.840.1.060713.3.579.2.106 9 1965 Unknown [id number] 2.16.840.1.235719.3.579.2.106 9 1965 Unknown [id number] 2.16.840.1.028915.3.579.2.106 9 1965 Unknown [id number] 2.16.840.1.861636.3.579.2.106 1965 Unknown [id number] 2.16.840.1.696344.3.579.2.106 9 1965 Unknown [id number] 2.16.840.1.224056.3.579.2.106 9 1965 Unknown [id number] 2.16.840.1.624199.3.579.2.106 1965 Unknown [id number] 2.16.840.1.474393.3.579.2.106 1965 Unknown [id number] 2.16.840.1.041856.3.579.2.106 9 1965 Unknown [id number] 2.16.840.1.109977.3.579.2.106 9 1965 Unknown [id number] 2.16.840.1.101713.3.579.2.106 9 1965 Unknown [id number] 2.16.840.1.142147.3.579.2.106 1965 Unknown [id number] 2.16.840.1.022630.3.579.2.106 1965 Unknown [id number] 2.16.840.1.981099.3.579.2.106 9 1965 Unknown [id number] 2.16.840.1.170182.3.579.2.124 4 1965 Unknown [id number] 2.16.840.1.524486.3.579.2.124 4 1965 Unknown [id number] 2.16.840.1.483318.3.579.2.124 3 1965 Unknown [id number] 2.16.840.1.619669.3.579.2.903 1965 Unknown [id number] 2.16.840.1.641465.3.579.2.903 Social History Date Type Detail Facility Start: 02-13-2017 End: 06-18-2022 Tobacco smoking status NHIS Never smoker [place] Start: 1965 Sex Assigned At Not on file [facility] Work Phone: Start: 09-23-2018 End: 02-22-2023 Alcohol intake Current non-drinker of alcohol (finding) [facility] Start: 02-22-2020 End: 06-18-2022 Tobacco use and exposure Never used [place] Start: 02-09-2022 End: 06-17-2023 Exposure to SARS-CoV-2 (event) Not sure [facility] Tobacco smoking consumption unknown [facility] Start: 02-19-2022 End: 02-28-2023 History of Social function [place] Start: 02-19-2022 End: 02-28-2023 Tobacco use panel [facility] Start: 10-09-2017 Gender identity Identifies as female gender (finding) [facility] Start: 10-09-2017 Sexual orientation Heterosexual (finding) [facility] Goals Date Patient Goal Desired Activity /State Personal health goal Functional Status Date Assessment Result Facility NEGATED: Highlighted row Functional performance Functional status health issues are not documented Disease [facility] Work Phone: Mental Status Date Assessment Result Facility NEGATED: Highlighted row Cognitive function [Interpretation] Cognitive status health issues are not documented Disease [facility] Work Phone: Clinical Notes 02-20-2021 to 06-17-2023 Ines Cedeno MA - 06/17/2023 3:00 PM Madiha Cutler MD - 06/17/2023 3:00 PM Jaspreet Osullivan - 04/03/2023 8:30 PM Madiha Cutler MD - 02/28/2023 3:20 PM EST Note Date & Type Note Facility 06-17-2023 History of Presen t illness Narrative CPAP Follow up: Her sleep study was done on 04/05/23. She states she feels better and is sleeping better. She is here for a follow up per her insurance. Subjective Patient ID: Tara Tang is a 57 y.o. female who presents for Follow-up (CPAP/Sleep study done 04/05/23). HPI Severe DARSHANA Apap 8 to 14 per in lab titration 4 to 9 hour per night usage per elizabeth on phone Events per hour 1 to 2 Feels better Not a back sleeper Has good seal Mask nasal cushion now sleeps through the night Less falling asleep on the couch in the evenings Occ JAQUEZ before now none Wants to loose weight Gained wt after ankle fracture Wt watchers online Counting points started 1 week No wt loss Not counting calories Discussed meds but will stay with current plan Review of Systems Objective BP 124/78 (BP Location: Right arm, Patient Position: Sitting) Pulse 52 Temp 35.8 C (96.5 F) Wt 110 kg (242 lb 12.8 oz) SpO2 96% BMI 38.02 kg/m Physical Exam Vitals reviewed. Constitutional: Appearance: Normal appearance. HENT: Head: Normocephalic and atraumatic. Mouth/Throat: Mouth: Mucous membranes are moist. Pharynx: Oropharynx is clear. Eyes: Conjunctiva/sclera: Conjunctivae normal. Cardiovascular: Rate and Rhythm: Normal rate and regular rhythm. Pulmonary: Effort: Pulmonary effort is normal. Breath sounds: Normal breath sounds. Musculoskeletal: Cervical back: Neck supple. Skin: General: Skin is warm and dry. Neurological: General: No focal deficit present. Mental Status: She is alert and oriented to person, place, and time. Psychiatric: Mood and Affect: Mood normal. Behavior: Behavior normal. Thought Content: Thought content normal. Judgment: Judgment normal. Assessment/Plan Diagnoses and all orders for this visit: Obstructive sleep apnea syndrome, severe documented in this encounter [facility] Work Phone: 04-03-2023 History of Presen t illness Narrative Images from the original note were not included. [facility] [employer] NOTE: Patient: Tara Tang MRN//AGE: [id number] 1965 57 y.o. Technologist: Freida Osullivan RPSGT/AUTOMATIC SPINNING LATHE OPERATOR Room: 1 Service Date: 04/03/2023 Sleep Testing Location: [place] [address] [place]: 11 TECHNOLOGIST SLEEP STUDY PROCEDURE NOTE: This sleep study is being conducted according to the policies and procedures outlined by the AAS accreditation standards. The sleep study procedure and processes involved during this appointment was explained to the patient/patient s family, questions were answered. The patient/family verbalized understanding. The patient is a 57 y.o. year old female scheduled for a CPAP titration with montage of: PAP MASTER . she arrived for her appointment. The study that was ultimately completed was a CPAP titration with montage of: PAP MASTER . The full study Was completed. Patient questionnaires completed?: yes Consents signed? yes Initial Fall Risk Screening: Tara has not fallen in the last 6 months. Tara does not have a fear of falling. She does not need assistance with sitting, standing, or walking. She does not need assistance walking in her home. She does not need assistance in an unfamiliar setting. The patient is not using an assistive device. Brief Study observations: The patient arrives at the [facility] for a CPAP titration. She was shown to room two where the procedure and paperwork were explained. She was fitted with the Rk nasal mask in small/ medium. The CPAP titration was conducted on room air, started at a CPAP pressure of 4.0 CMH2O, and increased per need to a CPAP pressure of 12.0 CMH2O where supine REM with minimal events was achieved. Deviation to order/protocol and reason: NA If PAP, which was preferred mask/pressure/mode: Rk nasal mask in small/ medium, 12.0 CMH2O , CPAP Other:None After the procedure, the patient/family was informed to ensure followup with ordering clinician for testing results. Technologist: Freida Osullivan RPSGT/AUTOMATIC SPINNING LATHE OPERATOR documented in this encounter [facility] Work Phone: 02-28-2023 History of Presen t illness Narrative Subjective Patient ID: Tara Tang is a 57 y.o. female who presents for pt c/o sore throat, cough x 1 week. HPI [address] Congestion occ cough [place] [facility] and on eye drops Dr Marie lotomax Drainaage left eye started yesterday and is better No fevers Has tonsills No exudates Occ runny nose clear some green No sinus jaquez or pressure Sob none Covid test was neg Ill contacts family back and forth Review of Systems Objective BP 136/78 Pulse 77 Temp 36.1 C (97 F) Ht 1.702 m (5' 7 ) Wt 106 kg (233 lb) BMI 36.49 kg/m Physical Exam Vitals reviewed. Constitutional: Appearance: Normal appearance. HENT: Head: Normocephalic and atraumatic. Right Ear: Tympanic membrane, ear canal and external ear normal. There is no impacted cerumen. Left Ear: Tympanic membrane, ear canal and external ear normal. There is no impacted cerumen. Nose: Nose normal. No congestion or rhinorrhea. Mouth/Throat: Mouth: Mucous membranes are moist. Pharynx: Oropharyngeal exudate and posterior oropharyngeal erythema present. Eyes: Conjunctiva/sclera: Conjunctivae normal. Cardiovascular: Rate and Rhythm: Normal rate and regular rhythm. Pulmonary: Effort: Pulmonary effort is normal. Breath sounds: Normal breath sounds. Musculoskeletal: Cervical back: Neck supple. Skin: General: Skin is warm and dry. Neurological: General: No focal deficit present. Mental Status: She is alert and oriented to person, place, and time. Psychiatric: Mood and Affect: Mood normal. Behavior: Behavior normal. Thought Content: Thought content normal. Judgment: Judgment normal. Assessment/Plan Diagnoses and all orders for this visit: Tonsillopharyngitis - POCT Rapid Strep A manually resulted - Group A Streptococcus, Culture documented in this encounter [facility] Work Phone: 02-22-2023 Note Addended by: TATYANA SALINAS on: 02/22/2023 03:14 PM Modules accepted: Orders [place] 02-22-2023 Miscellaneous Notes Addended by: TATYANA SALINAS on: 02/22/2023 03:14 PM Modules accepted: Orders documented in this encounter [place] 02-22-2023 History of Presen t illness Narrative Images from the original note were not included. Subjective: Patient ID: Tara Tang is a 57 y.o. female. Thyroid Problem Symptoms include cold intolerance, heat intolerance (hot flushes), menstrual problem (entering menopause) and weight gain (had lost weight, recently regained. ). Patient reports no constipation, diarrhea, fatigue, palpitations or tremors. patient presents for follow-up of nontoxic multinodular goiter. She is on levothyroxine 50 g daily for TSH suppression therapy. She is status post FNA biopsy of dominant left nodule in 01/24 with benign follicular cytology. After ultrasound in 07/29, she was referred for FNA biopsy of enlarging left nodule. FNA biopsy was performed of 2 left nodules with benign cytology as noted below. She presents for one year follow-up. She had a repeat thyroid ultrasound done on 02/07/17, and on 02/12/19 with results noted below. Symptoms were reviewed with patient. Currently she has no symptoms of hypo-or hyperthyroidism. 02/16/23: TSH: 1.260; Free T4: 1.34 02/06/22: TSH: 1.060; Free T4: 1.24 02/14/21: TSH: 0.998; Free T4: 1.32 02/19/20 TSH: 1.450; Free T4: 1.15 02/18/2019 TSH 0.882, FT4--1.09 09/23/2018 TSH 2.11, FT4--1.16 08/14/2018 TSH 0.251, FT4--1.60 02/13/18 TSH 1.690, FT4--1.29 02/08/17 TSH 0.789, FT4--1.41 02/08/16 TSH 0.503, FT4--1.63 08/19/15 A. FNA, Left Thyroid Anterior B. FNA, Thyroid Left Posterior Diagnosis A. BENIGN Consistent with a benign follicular nodule. Malignancy risk: 0-3% Recommended management: Clinical follow-up B. BENIGN Consistent with a benign follicular nodule. Malignancy risk: 0-3% Recommended management: Clinical follow-up 08/09/15 TSH 0.402, free T4--1.40 08/05/15 thyroid ultrasound: Comparison with 01/27/14, 01/28/13, and 01/24/12. Right lobe homogenous measuring 4.6 x 1.6 x 1.2 cm. Left lobe homogenous measuring 5.2 x 1.9 x 2.4 cm. A homogenous isoechoic nodule with a hypoechoic rim in the mid to inferior segment measures 3.9 x 1.8 x 2.2 cm (3.8 x 1.7 x 2.5 cm in 2013 and 3.9 x 1.7 x 2.7 cm in 2011); a hypoechoic nodule in the deep mid to inferior segment measures 14 x 6 x 10 cm, previously measures 11 x 5 x 9 cm and 2013 and 10 x 6 x5 mm in 2011. No new nodules are identified. Impression: Dominant isoechoic nodule left thyroid lobe has been stable since at least 2011. Hypoechoic nodule in the deep mid to inferior left thyroid lobe has mildly increased in size since 2011 now measuring up to 1.4 cm. No new nodules identified US THYROID 02/07/2017 9:19 AM Comparison: 08/05/2015, 01/27/2014 Findings: The right thyroid lobe is homogeneous in echotexture measuring 4.3 x 1.3 x 1.2 cm. The isthmus measures 3 mm in thickness. The left thyroid lobe is homogeneous in echotexture measuring 5.2 x 2.0 x 2.5 cm. It contains a solid nodule occupying the majority of the lobe with a small peripheral cystic component. This measures 4.2 x 1.7 x 2.6 cm. Internal Doppler signals present. Previously this measured 3.9 x 1.8 x 2.2 cm (although the prior measurement did not include the small peripheral cystic component) and 3.8 x 1.7 x 2.5 cm in 2013. The hypoechoic nodule in the deep portion of the inferior left thyroid lobe measures 1.4 x 0.5 x 0.8 cm, previously 1.4 x 0.6 x 1.0 cm. Impression: 1. Minimal change in size of the dominant nodule in the left thyroid lobe measuring up to 4.2 cm. This change in size is partly due to a small peripheral cystic component in this nodule. 2. No significant change in hypoechoic nodule in the deep inferior left thyroid lobe. 02/12/2019 US THYROID ONLY COMPARISON: 02/07/2017, 08/05/2015 01/24/2012. FINDINGS: The right lobe of the thyroid measures 4.4 x 1.1 x 1.2 cm. Thyroid isthmus measures 3 mm in thickness. The left lobe of the thyroid measures 5.2 x 1.8 x 2.3 cm. The background thyroid architecture and echogenicity is appropriate. There are no nodules or masses in the right lobe of the thyroid or the thyroid isthmus. There is a stable isoechoic solid left thyroid nodule, which measures 3.7 x 1.8 x 2.5 cm. This is unchanged dating back to 2011. This is a TI-RADS category 3 nodule which shows 7 years of stability. There is a partially solid and partially cystic 1.6 cm left thyroid nodule. This solid component is slightly hypoechoic. This is a TI-RADS category 3 nodule is well. This nodule has only minimally increased in size from prior examinations and does not meet criteria for biopsy. IMPRESSION: Stable TI-RADS category 3 3.7 cm left thyroid nodule. This is benign given 7 years of stability. Minimal increase in size of a TI-RADS category 3 partially solid and cystic left thyroid nodule measuring 1.6 cm. This does not meet criteria for biopsy, but continued sonographic follow-up in 1 to 2 years could be considered. 01/29/22 Thyroid Ultrasound Findings: Right lobe: The right lobe of the thyroid gland measures 4x1.2x0.9 cm. There is a homogeneous echotexture. There is a anechoic 3 mm cyst. No suspicious solid hypoechoic nodule. Left Lobe: The left lobe of the thyroid gland measures 5x2.4x1.8cm. There is a homogeneous echotexture. There are 2 separate solid/cystic complex nodules with microcalcifications, larger measures 4.3x2.7x1.8 cm, smaller 1.5x1.1x0.6 cm. Isthmus: The isthmus measures 1.4x=mm. The regional lymph nodes are normal. Impression: Homogenous thyroid gland with solid.cystic nodules in the left lobe and simple cyst in the right lobe. No suspicious solid nodule noted. No specific follow-up needed. The following portions of the patient's history were reviewed and updated as appropriate: allergies, current medications, past family history, past medical history, past social history, past surgical history and problem list. Review of Systems Constitutional: Positive for weight gain (had lost weight, recently regained. ). Negative for appetite change, fatigue and unexpected weight change. HENT: Negative for trouble swallowing and voice change. Eyes: Negative for pain, redness and visual disturbance. Respiratory: Negative for shortness of breath. Cardiovascular: Negative for chest pain and palpitations. Gastrointestinal: Negative for constipation and diarrhea. Endocrine: Positive for cold intolerance and heat intolerance (hot flushes). Genitourinary: Positive for menstrual problem (entering menopause). Musculoskeletal: Negative for neck pain. Skin: Negative for wound. +hair loss Neurological: Negative for tremors. Psychiatric/Behavioral: Positive for sleep disturbance. Objective: BP 135/82 (BP Location: Left arm) Pulse 67 Wt 109.7 kg (241 lb 14.4 oz) LMP 08/27/2020 BMI 37.89 kg/m Wt Readings from Last 3 Encounters: 02/22/23 109.7 kg (241 lb 14.4 oz) 02/19/22 104.8 kg (231 lb) 02/20/21 98.5 kg (217 lb 1.6 oz) Physical Exam Constitutional: Appearance: She is well-developed. HENT: Head: Normocephalic. Eyes: Pupils: Pupils are equal, round, and reactive to light. Neck: Thyroid: Thyromegaly present. Comments: Left > right thyroid enlargement. Cardiovascular: Rate and Rhythm: Normal rate and regular rhythm. Heart sounds: Normal heart sounds. No murmur heard. Pulmonary: Effort: Pulmonary effort is normal. No respiratory distress. Breath sounds: Normal breath sounds. No wheezing or rales. Musculoskeletal: Cervical back: Normal range of motion. Lymphadenopathy: Cervical: No cervical adenopathy. Skin: General: Skin is warm. Findings: No erythema. Neurological: Mental Status: She is alert and oriented to person, place, and time. Psychiatric: Thought Content: Thought content normal. Judgment: Judgment normal. Assessment/Plan: Diagnoses and associated orders for this visit: Multinodular goiter (nontoxic): Patient is status post FNA biopsy of dominant left thyroid nodule in 2011 with benign follicular cytology. Repeat FNA biopsy done 08/28 of 2 left nodules reveals benign cytology. There are no nodules noted in right lobe. Most recent ultrasound shows stable 3.7 cm nodule in left lobe and second nodule measured at 1.6 cm, very slightly changed over past 2 years. PLAN: Continue levothyroxine 50 g daily. Recheck labs in one year. Recheck thyroid ultrasound PRN if exam changes. Nodules generally stable for last 10 years. If develops hyperthyroidism, consider autonomous nodule. - T4, Free; Future - TSH; Future Other Orders Electronically Signed by: Tatyana Salinas CNP 02/22/23 8:20 AM documented in this encounter [place] 06-15-2022 History of Presen t illness Narrative Ms. Tang arrives to outpatient PT with s/s consistent s/p fall causing L ankle fx 06/15/22 with surgery 06/28/22. Pt presents with the following impairments: weakness L ankle, weakness L intrinsic foot muscles, limited ROM L ankle, swelling L ankle and foot, impaired balance, impaired gait. These impairments contribute to difficulty in activity limitations and participation restrictions including cooking, cleaning, walking, stairs, ADLs. The pt will benefit from skilled PT services to address the above stated impairments and functional limitations to maximize participation and ease in household, social, and work related activities. The pt has a good prognosis when considering positive factors including age, PLOF, motivation with barriers such as significant swelling at eval. The pt verbalized understanding and agreement to goals and POC. Thank you for this referral and please call [phone] with any questions or concerns.Clinical Presentation: Stable and/or uncomplicated characteristics.Level of Complexity: lowProblem List: activity limitations, ADLs/IADLs/self care skills, balance, decreased functional level, decreased knowledge of HEP, flexibility, gait/locomotion, pain, participation restrictions, range of motion/joint mobility, strength and transfers. [facility] Work Phone: 06-15-2022 History of Presen t illness Narrative Patient confirmed name and date of this session.Ms. Tang is progressing well through POC s/p L ankle fx 06/15/22 with surgery 06/28/22. She demos improved strength, balance, edema, and mobility which is allowing for improved ease with ambulation. Biggest barrier to further progress is swelling of ankle however this is improving. Able to add more stability exercises for ankle recently with some c/o soreness but no sharp pain. Pt will benefit from cont PT as she is still experiencing pain and swelling which is causing issues with strength and balance. [facility] Work Phone: 06-15-2022 History of Presen t illness Narrative Patient confirmed name and date of this session.Ms. Tang is progressing well through POC s/p L ankle fx 06/15/22 with surgery 06/28/22. She demos improved balance and LLE strength since last recheck which is allowing for improved gait mechanics. This helps with performance of ADLs and household duties. She does demo myofascial restrictions of LLE, imbalance with activity, functional weakness, and tightness of LLE still. She was educated on performing self massage and instructed to move inferior to superior for swelling. HEP updated. As she is still experiencing impairments listed above which is impacting ease of ADLs, household duties, and work duties she will benefit from cont PT. [facility] Work Phone: 02-19-2022 History of Presen t illness Narrative Images from the original note were not included. Subjective: Patient ID: Tara Tang is a 56 y.o. female. Thyroid Problem Symptoms include cold intolerance, heat intolerance (hot flushes), menstrual problem (entering menopause) and weight gain (had lost weight, recently regained. ). Patient reports no constipation, diarrhea, fatigue, palpitations or tremors. patient presents for follow-up of nontoxic multinodular goiter. She is on levothyroxine 50 g daily for TSH suppression therapy. She is status post FNA biopsy of dominant left nodule in 01/24 with benign follicular cytology. After ultrasound in 07/29, she was referred for FNA biopsy of enlarging left nodule. FNA biopsy was performed of 2 left nodules with benign cytology as noted below. She presents for one year follow-up. She had a repeat thyroid ultrasound done on 02/07/17, and on 02/12/19 with results noted below. Symptoms were reviewed with patient. Currently she has no symptoms of hypo-or hyperthyroidism. 02/06/22: TSH: 1.060; Free T4: 1.24 02/14/21: TSH: 0.998; Free T4: 1.32 02/19/20 TSH: 1.450; Free T4: 1.15 02/18/2019 TSH 0.882, FT4--1.09 09/23/2018 TSH 2.11, FT4--1.16 08/14/2018 TSH 0.251, FT4--1.60 02/13/18 TSH 1.690, FT4--1.29 02/08/17 TSH 0.789, FT4--1.41 02/08/16 TSH 0.503, FT4--1.63 08/19/15 A. FNA, Left Thyroid Anterior B. FNA, Thyroid Left Posterior Diagnosis A. BENIGN Consistent with a benign follicular nodule. Malignancy risk: 0-3% Recommended management: Clinical follow-up B. BENIGN Consistent with a benign follicular nodule. Malignancy risk: 0-3% Recommended management: Clinical follow-up 08/09/15 TSH 0.402, free T4--1.40 08/05/15 thyroid ultrasound: Comparison with 01/27/14, 01/28/13, and 01/24/12. Right lobe homogenous measuring 4.6 x 1.6 x 1.2 cm. Left lobe homogenous measuring 5.2 x 1.9 x 2.4 cm. A homogenous isoechoic nodule with a hypoechoic rim in the mid to inferior segment measures 3.9 x 1.8 x 2.2 cm (3.8 x 1.7 x 2.5 cm in 2013 and 3.9 x 1.7 x 2.7 cm in 2011); a hypoechoic nodule in the deep mid to inferior segment measures 14 x 6 x 10 cm, previously measures 11 x 5 x 9 cm and 2013 and 10 x 6 x5 mm in 2011. No new nodules are identified. Impression: Dominant isoechoic nodule left thyroid lobe has been stable since at least 2011. Hypoechoic nodule in the deep mid to inferior left thyroid lobe has mildly increased in size since 2011 now measuring up to 1.4 cm. No new nodules identified US THYROID 02/07/2017 9:19 AM Comparison: 08/05/2015, 01/27/2014 Findings: The right thyroid lobe is homogeneous in echotexture measuring 4.3 x 1.3 x 1.2 cm. The isthmus measures 3 mm in thickness. The left thyroid lobe is homogeneous in echotexture measuring 5.2 x 2.0 x 2.5 cm. It contains a solid nodule occupying the majority of the lobe with a small peripheral cystic component. This measures 4.2 x 1.7 x 2.6 cm. Internal Doppler signals present. Previously this measured 3.9 x 1.8 x 2.2 cm (although the prior measurement did not include the small peripheral cystic component) and 3.8 x 1.7 x 2.5 cm in 2013. The hypoechoic nodule in the deep portion of the inferior left thyroid lobe measures 1.4 x 0.5 x 0.8 cm, previously 1.4 x 0.6 x 1.0 cm. Impression: 1. Minimal change in size of the dominant nodule in the left thyroid lobe measuring up to 4.2 cm. This change in size is partly due to a small peripheral cystic component in this nodule. 2. No significant change in hypoechoic nodule in the deep inferior left thyroid lobe. 02/12/2019 US THYROID ONLY COMPARISON: 02/07/2017, 08/05/2015 01/24/2012. FINDINGS: The right lobe of the thyroid measures 4.4 x 1.1 x 1.2 cm. Thyroid isthmus measures 3 mm in thickness. The left lobe of the thyroid measures 5.2 x 1.8 x 2.3 cm. The background thyroid architecture and echogenicity is appropriate. There are no nodules or masses in the right lobe of the thyroid or the thyroid isthmus. There is a stable isoechoic solid left thyroid nodule, which measures 3.7 x 1.8 x 2.5 cm. This is unchanged dating back to 2011. This is a TI-RADS category 3 nodule which shows 7 years of stability. There is a partially solid and partially cystic 1.6 cm left thyroid nodule. This solid component is slightly hypoechoic. This is a TI-RADS category 3 nodule is well. This nodule has only minimally increased in size from prior examinations and does not meet criteria for biopsy. IMPRESSION: Stable TI-RADS category 3 3.7 cm left thyroid nodule. This is benign given 7 years of stability. Minimal increase in size of a TI-RADS category 3 partially solid and cystic left thyroid nodule measuring 1.6 cm. This does not meet criteria for biopsy, but continued sonographic follow-up in 1 to 2 years could be considered. 01/29/22 Thyroid Ultrasound Findings: Right lobe: The right lobe of the thyroid gland measures 4x1.2x0.9 cm. There is a homogeneous echotexture. There is a anechoic 3 mm cyst. No suspicious solid hypoechoic nodule. Left Lobe: The left lobe of the thyroid gland measures 5x2.4x1.8cm. There is a homogeneous echotexture. There are 2 separate solid/cystic complex nodules with microcalcifications, larger measures 4.3x2.7x1.8 cm, smaller 1.5x1.1x0.6 cm. Isthmus: The isthmus measures 1.4x=mm. The regional lymph nodes are normal. Impression: Homogenous thyroid gland with solid.cystic nodules in the left lobe and simple cyst in the right lobe. No suspicious solid nodule noted. No specific follow-up needed. The following portions of the patient's history were reviewed and updated as appropriate: allergies, current medications, past family history, past medical history, past social history, past surgical history and problem list. Review of Systems Constitutional: Positive for weight gain (had lost weight, recently regained. ). Negative for appetite change, fatigue and unexpected weight change. HENT: Negative for trouble swallowing and voice change. Eyes: Negative for pain, redness and visual disturbance. Respiratory: Negative for shortness of breath. Cardiovascular: Negative for chest pain and palpitations. Gastrointestinal: Negative for constipation and diarrhea. Endocrine: Positive for cold intolerance and heat intolerance (hot flushes). Genitourinary: Positive for menstrual problem (entering menopause). Musculoskeletal: Negative for neck pain. Skin: Negative for wound. +hair loss Neurological: Negative for tremors. Psychiatric/Behavioral: Positive for sleep disturbance. Objective: BP 134/74 Pulse (!) 56 Ht 5' 7 Wt 104.8 kg (231 lb) LMP 08/27/2020 BMI 36.18 kg/m Wt Readings from Last 3 Encounters: 02/19/22 104.8 kg (231 lb) 02/20/21 98.5 kg (217 lb 1.6 oz) 11/09/20 103.8 kg (228 lb 12.8 oz) Physical Exam Constitutional: Appearance: She is well-developed. HENT: Head: Normocephalic. Eyes: Pupils: Pupils are equal, round, and reactive to light. Neck: Thyroid: Thyromegaly present. Comments: Left > right thyroid enlargement. Cardiovascular: Rate and Rhythm: Normal rate and regular rhythm. Heart sounds: Normal heart sounds. No murmur heard. Pulmonary: Effort: Pulmonary effort is normal. No respiratory distress. Breath sounds: Normal breath sounds. No wheezing or rales. Musculoskeletal: Cervical back: Normal range of motion. Lymphadenopathy: Cervical: No cervical adenopathy. Skin: General: Skin is warm. Findings: No erythema. Neurological: Mental Status: She is alert and oriented to person, place, and time. Psychiatric: Thought Content: Thought content normal. Judgment: Judgment normal. Assessment/Plan: Diagnoses and associated orders for this visit: Multinodular goiter (nontoxic): Patient is status post FNA biopsy of dominant left thyroid nodule in 2011 with benign follicular cytology. Repeat FNA biopsy done 08/28 of 2 left nodules reveals benign cytology. There are no nodules noted in right lobe. Most recent ultrasound shows stable 3.7 cm nodule in left lobe and second nodule measured at 1.6 cm, very slightly changed over past 2 years. PLAN: Continue levothyroxine 50 g daily. Recheck labs in one year. Recheck thyroid ultrasound PRN if exam changes. Nodules generally stable for last 10 years. If develops hyperthyroidism, consider autonomous nodule. - T4, Free; Future - TSH; Future Other Orders Electronically Signed by: Tatyana Salinas CNP 02/19/22 8:20 AM documented in this encounter [place] 02-20-2021 History of Presen t illness Narrative Images from the original note were not included. Subjective: Patient ID: Tara Tang is a 55 y.o. female. Thyroid Problem Symptoms include heat intolerance, menstrual problem (entering menopause) and weight gain (had lost weight, recently regained. ). Patient reports no cold intolerance, constipation, diarrhea, fatigue, palpitations or tremors. patient presents for follow-up of nontoxic multinodular goiter. She is on levothyroxine 50 g daily for TSH suppression therapy. She is status post FNA biopsy of dominant left nodule in 01/24 with benign follicular cytology. After last ultrasound in 07/29, she was referred for FNA biopsy of enlarging left nodule. FNA biopsy was performed of 2 left nodules with benign cytology as noted below. She presents for one year follow-up. She had a repeat thyroid ultrasound done on 02/07/17, and on 02/12/19 with results noted below. Symptoms were reviewed with patient. Currently she has no symptoms of hypo-or hyperthyroidism. 02/14/21: TSH: 0.998; Free T4: 1.32 02/19/20 TSH: 1.450; Free T4: 1.15 02/18/2019 TSH 0.882, FT4--1.09 09/23/2018 TSH 2.11, FT4--1.16 08/14/2018 TSH 0.251, FT4--1.60 02/13/18 TSH 1.690, FT4--1.29 02/08/17 TSH 0.789, FT4--1.41 02/08/16 TSH 0.503, FT4--1.63 08/19/15 A. FNA, Left Thyroid Anterior B. FNA, Thyroid Left Posterior Diagnosis A. BENIGN Consistent with a benign follicular nodule. Malignancy risk: 0-3% Recommended management: Clinical follow-up B. BENIGN Consistent with a benign follicular nodule. Malignancy risk: 0-3% Recommended management: Clinical follow-up 08/09/15 TSH 0.402, free T4--1.40 08/05/15 thyroid ultrasound: Comparison with 01/27/14, 01/28/13, and 01/24/12. Right lobe homogenous measuring 4.6 x 1.6 x 1.2 cm. Left lobe homogenous measuring 5.2 x 1.9 x 2.4 cm. A homogenous isoechoic nodule with a hypoechoic rim in the mid to inferior segment measures 3.9 x 1.8 x 2.2 cm (3.8 x 1.7 x 2.5 cm in 2013 and 3.9 x 1.7 x 2.7 cm in 2011); a hypoechoic nodule in the deep mid to inferior segment measures 14 x 6 x 10 cm, previously measures 11 x 5 x 9 cm and 2013 and 10 x 6 x5 mm in 2011. No new nodules are identified. Impression: Dominant isoechoic nodule left thyroid lobe has been stable since at least 2011. Hypoechoic nodule in the deep mid to inferior left thyroid lobe has mildly increased in size since 2011 now measuring up to 1.4 cm. No new nodules identified US THYROID 02/07/2017 9:19 AM Comparison: 08/05/2015, 01/27/2014 Findings: The right thyroid lobe is homogeneous in echotexture measuring 4.3 x 1.3 x 1.2 cm. The isthmus measures 3 mm in thickness. The left thyroid lobe is homogeneous in echotexture measuring 5.2 x 2.0 x 2.5 cm. It contains a solid nodule occupying the majority of the lobe with a small peripheral cystic component. This measures 4.2 x 1.7 x 2.6 cm. Internal Doppler signals present. Previously this measured 3.9 x 1.8 x 2.2 cm (although the prior measurement did not include the small peripheral cystic component) and 3.8 x 1.7 x 2.5 cm in 2013. The hypoechoic nodule in the deep portion of the inferior left thyroid lobe measures 1.4 x 0.5 x 0.8 cm, previously 1.4 x 0.6 x 1.0 cm. Impression: 1. Minimal change in size of the dominant nodule in the left thyroid lobe measuring up to 4.2 cm. This change in size is partly due to a small peripheral cystic component in this nodule. 2. No significant change in hypoechoic nodule in the deep inferior left thyroid lobe. 02/12/2019 US THYROID ONLY COMPARISON: 02/07/2017, 08/05/2015 01/24/2012. FINDINGS: The right lobe of the thyroid measures 4.4 x 1.1 x 1.2 cm. Thyroid isthmus measures 3 mm in thickness. The left lobe of the thyroid measures 5.2 x 1.8 x 2.3 cm. The background thyroid architecture and echogenicity is appropriate. There are no nodules or masses in the right lobe of the thyroid or the thyroid isthmus. There is a stable isoechoic solid left thyroid nodule, which measures 3.7 x 1.8 x 2.5 cm. This is unchanged dating back to 2011. This is a TI-RADS category 3 nodule which shows 7 years of stability. There is a partially solid and partially cystic 1.6 cm left thyroid nodule. This solid component is slightly hypoechoic. This is a TI-RADS category 3 nodule is well. This nodule has only minimally increased in size from prior examinations and does not meet criteria for biopsy. IMPRESSION: Stable TI-RADS category 3 3.7 cm left thyroid nodule. This is benign given 7 years of stability. Minimal increase in size of a TI-RADS category 3 partially solid and cystic left thyroid nodule measuring 1.6 cm. This does not meet criteria for biopsy, but continued sonographic follow-up in 1 to 2 years could be considered. The following portions of the patient's history were reviewed and updated as appropriate: allergies, current medications, past family history, past medical history, past social history, past surgical history and problem list. Review of Systems Constitutional: Positive for weight gain (had lost weight, recently regained. ). Negative for appetite change, fatigue and unexpected weight change (intentional weight loss, down 13. ). HENT: Negative for trouble swallowing and voice change. Eyes: Negative for pain, redness and visual disturbance. Respiratory: Negative for shortness of breath. Cardiovascular: Negative for chest pain and palpitations. Gastrointestinal: Negative for constipation and diarrhea. Endocrine: Positive for heat intolerance. Negative for cold intolerance. Genitourinary: Positive for menstrual problem (entering menopause). Musculoskeletal: Negative for neck pain. Skin: Negative for wound. +hair loss Neurological: Negative for tremors. Psychiatric/Behavioral: Positive for sleep disturbance. Objective: BP 124/81 (BP Location: Left arm, Patient Position: Sitting, BP Cuff Size: Adult) Pulse 64 Ht 5' 7 Wt 98.5 kg (217 lb 1.6 oz) LMP 08/27/2020 BMI 34.00 kg/m Wt Readings from Last 3 Encounters: 02/20/21 98.5 kg (217 lb 1.6 oz) 11/09/20 103.8 kg (228 lb 12.8 oz) 10/28/20 104.3 kg (230 lb) Physical Exam Constitutional: Appearance: She is well-developed. HENT: Head: Normocephalic. Eyes: Pupils: Pupils are equal, round, and reactive to light. Neck: Thyroid: Thyromegaly present. Comments: Left > right thyroid enlargement. Cardiovascular: Rate and Rhythm: Normal rate and regular rhythm. Heart sounds: Normal heart sounds. No murmur heard. Pulmonary: Effort: Pulmonary effort is normal. No respiratory distress. Breath sounds: Normal breath sounds. No wheezing or rales. Musculoskeletal: Cervical back: Normal range of motion. Lymphadenopathy: Cervical: No cervical adenopathy. Skin: General: Skin is warm. Findings: No erythema. Neurological: Mental Status: She is alert and oriented to person, place, and time. Psychiatric: Thought Content: Thought content normal. Judgment: Judgment normal. Assessment/Plan: Diagnoses and associated orders for this visit: Multinodular goiter (nontoxic): Patient is status post FNA biopsy of dominant left thyroid nodule in 2011 with benign follicular cytology. Repeat FNA biopsy done 08/28 of 2 left nodules reveals benign cytology. There are no nodules noted in right lobe. Most recent ultrasound shows stable 3.7 cm nodule in left lobe and second nodule measured at 1.6 cm, very slightly changed over past 2 years. PLAN: Continue levothyroxine 50 g daily. Recheck labs in one year. Recheck thyroid ultrasound in 3 year interval (02/03). If develops hyperthyroidism, consider autonomous nodule. - T4, Free; Future - TSH; Future Other Orders Electronically Signed by: Tatyana Salinas CNP 02/20/21 8:20 AM documented [facility] Diagnosis Nontoxic multinodular goiter- Primary [facility] Diagnosis Nontoxic multinodular goiter- Primary [facility] Diagnosis Tonsillopharyngitis- Primary documented in this encounter [facility] Work Phone: Evaluation note* Diagnosis Severe obstructive sleep apnea documented in this encounter [facility] Work Phone: Evaluation note* Diagnosis Obstructive sleep apnea syndrome, severe- Primary documented in this encounter [facility] Work Phone: History of Present illness Narrative* Introduced ther- ex for left ankle ROM and strength with good response and tolerance. Patient voicedfeeling less tight and able to walk better following treatment. Reviewed/instructed in correct gt pattern. * Response to treatment: decreased pain, improved joint mobility/ROM, improved flexibility, improved gait and improved knowledge and understanding of condition. * Patient was able to complete today's treatment with some difficulty. [facility] Work [facility]: History of Present illness Narrative* Patient identified by name and * Patient appropriately challenged. Patient tolerates session well with mild difficulty. Patient demo's limitations in resisted inversion/eversion this date. Able to tolerate new exercises with no c/o increased symptoms. [facility] Work Phone: History of Present illness Narrative* Patient confirmed name and date of this session. * Performed manual therapy with myofascial restrictions felt in L fibularis, ant lower leg, achilles.Significant edema of L ankle observed today therefore trialed gameready today with low compression to improve edema. Skin intact pre/post gameready. No c/o pain throughout. [facility] Work Phone: History of Present illness Narrative* Patient identified by name and * Patient appropriately challenged. Patient still demo's restriction in L ankle DF/Inversion and Eversion. Patient responds well to STM this date with reduction of pain noted. [facility] Work Phone: History of Present illness Narrative* Patient identified by name and * Added multiple stability exercises today with minimal pain in L ankle. Pt instructed to hold on with 1UE during cone taps to reduce pain felt with L SLS. Manual therapy cont with most tenderness anteriomedial aspect of lower leg. Ended with vaso to reduce edema and soreness. [facility] Work Phone: history of Present illness Narrative* Patient identified by name and * Minimal progression/ addition today as pt experienced increased soreness after last session. Continued with ther ex focused on strength and stability of L ankle. UE support still needed for balance. Myofascial restrictions felt most significantly L anteromedial aspect of lower leg. Reduced stiffness after session. [facility] Work Phone: History of Present illness Narrative* Patient confirmed name and date of this session. * Improving balance observed today as she only needs intermittent UE support with all neuro re-ed (she previously needed at least 1UE support). VCs for fast movements with 3 way hip to challenge balance more. HEP updated with neuro re-ed today. [facility] Work Phone: History of Present illness Narrative* Patient confirmed name and date of this session. * Imbalance still observed as pt has to use UE support throughout session. Difficulty with newly added activities however no pain reported. VCs to perform slow eccentric movements with step downs. Myofascial restrictions felt in L ant tib. [facility] Work Phone: Hisdcgb of Present illness Narrative* Patient confirmed name and date of this session. * Pt returns after completing HEP x2 weeks IND. Progressed neuro re-ed with most difficulty during sideways hurdles and tandem amb. LOB multiple times with tandem amb with IND recovery. Cont manual therapy with myofascial restrictions felt in ant tib. [facility] Work Phone: Hiswmog of Present illness Narrative* Patient confirmed name and date of this session. * Pt returns after completing HEP x2 weeks IND. Progressed ther ex this date with addition of TM today which pt tolerated well. HEP updated with new calf raises as she is still very weak in this area. She demos improved L ankle strength, balance, and gait which allows for greater ease with walking, tr ansfers, ADLs, household duties. She is still limited in ankle ROM likely d/t swelling which is also impairing gait slightly. Pt is being placed on hold for 30 days to attempt performing their home exercise program independently. Pt instructed to contact with any problems, questions, or adjustments. This will serve as the patient s discharge if they elect not to resume skilled PT within 30 days. [facility] Work Phone: Reason for visit Narrative* Initial Evaluation . Dx:. * Referred by: Hood Quach [facility] Work Phone: Assessments Diagnosis Nontoxic multinodular goiter - Primary Diagnosis Nontoxic multinodular goiter Diagnosis Nontoxic multinodular goiter- Primary Diagnosis Nontoxic multinodular goiter- Primary Summary Purpose Family History No Family History Records FoundNo Family History Records FoundNo Family History Records FoundNo Family History Records FoundNo Family History Records FoundNo Family History Records FoundNo Family History Records FoundNo Family History Records FoundNo Family History Records Found Advance Directives Documents on File Type Date Recorded Patient Critical Care Technician Expl anation Advance Directives and Livin g Will 02/12/2019 2:03 PM Documents on File Type Date Recorded Patient Critical Care Technician Expl anation Advance Directives and Livin g Will 02/12/2019 2:03 PM Reason for Referral Status Reason Specialty Diagnoses / Procedures Referre d By Contact Referred To Contact Closed Radiology Diagnoses Nontoxic multinodular goiter Procedures US Thyroid Only Tona Washington MD [address] [address] Specialty Diagnoses / Procedures Referred By Mike curry Referred To Contact Diagnoses Nontoxic multinodular goiter Procedures US Thyroid Only Tatyana Salinas CNP [address] [facility] [place] [address] [address] Phone: [phone] Referral ID Status Reason Start Date Expiration Date Visits Requested Visits Authorized [id number] Closed Patient Preference 02/20/2021 02/20/2022 1 1 History of Present Illness * Tatyana Salinas CNP - 02/22/2020 8:15 AM EST Subjective: Patient ID: Tara Tang is a 54 y.o. female. Thyroid Problem Symptoms include heat intolerance, menstrual problem (entering menopause) and weight gain (had lostweight, recently regained. ). Patient reports no cold intolerance, constipation, diarrhea, fatigue,palpitations or tremors. patient presents for follow-up of nontoxic multinodular goiter. She is on levothyroxine 50 g daily for TSH suppression therapy. She is status post FNA biopsy of dominant left nodule in 01/24 with benign follicular cytology. After last ultrasound in 07/29, she was referred for FNA biopsy of enlarging left nodule. FNA biopsywas performed of 2 left nodules with benign cytology as noted below. She presents for one year follow-up. She had a repeat thyroid ultrasound done on 02/07/17, and on 02/12/19 with results noted below. Symptoms were reviewed with patient. Currently she has no symptomsof hypo-or hyperthyroidism. 02/19/20 TSH: 1.450; Free T4: 1.15 02/18/2019 TSH 0.882, FT4--1.09 09/23/2018 TSH 2.11, FT4--1.16 08/14/2018 TSH 0.251, FT4--1.60 02/13/18 TSH 1.690, FT4--1.29 02/08/17 TSH 0.789, FT4--1.41 02/08/16 TSH 0.503, FT4--1.63 08/19/15 A. FNA, Left Thyroid Anterior B. FNA, Thyroid Left Posterior Diagnosis A. BENIGN Consistent with a benign follicular nodule. Malignancy risk: 0-3% Recommended management: Clinical follow-up B. BENIGN Consistent with a benign follicular nodule. Malignancy risk: 0-3% Recommended management: Clinical follow-up 08/09/15 TSH 0.402, free T4--1.40 08/05/15 thyroid ultrasound: Comparison with 01/27/14, 01/28/13, and 01/24/12. Right lobe homogenousmeasuring 4.6 x 1.6 x 1.2 cm. Left lobe homogenous measuring 5.2 x 1.9 x 2.4 cm. A homogenous isoechoic nodule with a hypoechoic rim in the mid to inferior segment measures 3.9 x 1.8 x 2.2 cm (3.8 x 1.7 x 2.5 cm in 2013 and 3.9 x 1.7 x 2.7 cm in 2011); a hypoechoic nodule in the deep mid to inferior segment measures 14 x 6 x 10 cm, previously measures 11 x 5 x 9 cm and 2013 and 10 x 6 x5 mm in 2011. No new nodules are identified. Impression: Dominant isoechoic nodule left thyroid lobe has been stable since at least 2011. Hypoechoic nodule in the deep mid to inferior left thyroid lobe has mildly increased in size since 2012 now measuring up to 1.4 cm. No new nodules identified US THYROID 02/07/2017 9:19 AM Comparison: 08/05/2015, 01/27/2014 Findings: The right thyroid lobe is homogeneous in echotexture measuring 4.3 x 1.3 x 1.2 cm. The isthmus measures 3 mm in thickness. The left thyroid lobe is homogeneous in echotexture measuring 5.2 x 2.0 x 2.5 cm. It contains a solid nodule occupying the majority of the lobe with a small peripheral cystic component. This measures 4.2 x 1.7 x 2.6 cm. Internal Doppler signals present. Previously this measured 3.9 x 1.8 x 2.2 cm (although the prior measurement did not include the small peripheral cystic component) and 3.8 x 1.7 x 2.5 cm in 2013. The hypoechoic nodule in the deep portion of the inferior left thyroid lobe measures 1.4 x 0.5 x 0.8 cm, previously 1.4 x 0.6 x 1.0 cm. Impression: 1. Minimal change in size of the dominant nodule in the left thyroid lobe measuring up to 4.2 cm. This change in size is partly due to a small peripheral cystic component in this nodule. 2. No significant change in hypoechoic nodule in the deep inferior left thyroid lobe. 02/12/2019 US THYROID ONLY COMPARISON: 02/07/2017, 08/05/2015 01/24/2012. FINDINGS: The right lobe of the thyroid measures 4.4 x 1.1 x 1.2 cm. Thyroid isthmus measures 3 mm in thickness. The left lobe of the thyroid measures 5.2 x 1.8 x 2.3 cm. The background thyroid architecture and echogenicity is appropriate. There are no nodules or masses in the right lobe of the thyroid or the thyroid isthmus. There is a stable isoechoic solid left thyroid nodule, which measures 3.7 x 1.8 x2.5 cm. This is unchanged dating back to 2011. This is a TI-RADS category 3 nodule which shows 7 years of stability. There is a partially solid and partially cystic 1.6 cm left thyroid nodule. This solid component is slightly hypoechoic. This is a TI-RADS category 3 nodule is well. This nodule has only minimally increased in size from prior examinations and does not meet criteria for biopsy. IMPRESSION: Stable TI-RADS category 3 3.7 cm left thyroid nodule. This is benign given 7 years of stability. Minimal increase in size of a TI-RADS category 3 partially solid and cystic left thyroid nodule measuring 1.6 cm. This does not meet criteria for biopsy, but continued sonographic follow-up in 1 to 2years could be considered. The following portions of the patient's history were reviewed and updated as appropriate: allergies, current medications, past family history, past medical history, past social history, past surgicalhistory and problem list. Review of Systems Constitutional: Positive for weight gain (had lost weight, recently regained. ). Negative for appetite change, fatigue and unexpected weight change. HENT: Negative for congestion, rhinorrhea, trouble swallowing and voice change. Eyes: Negative for pain, redness and visual disturbance. Respiratory: Negative for shortness of breath. Cardiovascular: Negative for chest pain and palpitations. Gastrointestinal: Negative for constipation and diarrhea. Endocrine: Positive for heat intolerance. Negative for cold intolerance. Genitourinary: Positive for menstrual problem (entering menopause). Musculoskeletal: Negative for neck pain. Skin: Negative for wound. +hair loss Neurological: Negative for tremors. Psychiatric/Behavioral: Positive for sleep disturbance. Objective: BP 133/80 Pulse 61 Ht 5' 7 Wt 99.3 kg (219 lb) BMI 34.30 kg/m Wt Readings from Last 3 Encounters: 02/22/20 99.3 kg (219 lb) 02/20/19 80.3 kg (177 lb) 09/23/18 79.4 kg (175 lb) Physical Exam Constitutional: She is oriented to person, place, and time. She appears well-developed. HENT: Head: Normocephalic. Eyes: Pupils are equal, round, and reactive to light. Neck: Normal range of motion. Thyromegaly present. Left > right thyroid enlargement. Cardiovascular: Normal rate, regular rhythm and normal heart sounds. No murmur heard. Pulmonary/Chest: Effort normal and breath sounds normal. No respiratory distress. She has no wheezes. She has no rales. Musculoskeletal: General: No edema. Lymphadenopathy: She has no cervical adenopathy. Neurological: She is alert and oriented to person, place, and time. Skin: Skin is warm. No erythema. Psychiatric: She has a normal mood and affect. Judgment and thought content normal. Assessment/Plan: Diagnoses and associated orders for this visit: Multinodular goiter (nontoxic): Patient is status post FNA biopsy of dominant left thyroid nodule in 2011 with benign follicular cytology. Repeat FNA biopsy done 08/28 of 2 left nodules reveals benigncytology. There are no nodules noted in right lobe. Most recent ultrasound shows stable 3.7 cm nodule in left lobe and second nodule measured at 1.6 cm, very slightly changed over past 2 years. PLAN: Continue levothyroxine 50 g daily. Recheck labs in one year. Recheck thyroid ultrasound in 3 year interval (02/03). If develops hyperthyroidism, consider autonomous nodule. - T4, Free; Future - TSH; Future Other Orders - levothyroxine (SYNTHROID, LEVOTHROID) 75 MCG tablet; Take 1 tablet daily. Electronically Signed by: Tatyana Salinas CNP 02/22/20 8:20 AM documented in this encounter* Tona Washington MD - 02/20/2019 8:17 AM EST Subjective: Patient ID: Tara Tang is a 53 y.o. female. HPI patient presents for follow-up of nontoxic multinodular goiter. She is on levothyroxine 50 g daily for TSH suppression therapy. She is status post FNA biopsy of dominant left nodule in 01/24 withbenign follicular cytology. After last ultrasound in 07/29, she was referred for FNA biopsy of enlarging left nodule. FNA biopsywas performed of 2 left nodules with benign cytology as noted below. She presents for one year follow-up. She had a repeat thyroid ultrasound done on 02/07/17, and on 02/12/19 with results noted below. Symptoms were reviewed with patient. She has lost 46 pounds intentionally over the past 10 months; her levothyroxine dose was decreased from 75 mcg to 50 mcg daily inMay when she developed some symptoms of mild hyperthyroidism, with TSH suppression of 0.251. Currently she has no symptoms of hypo-or hyperthyroidism. 02/18/2019 TSH 0.882, FT4--1.09 09/23/2018 TSH 2.11, FT4--1.16 08/14/2018 TSH 0.251, FT4--1.60 02/13/18 TSH 1.690, FT4--1.29 02/08/17 TSH 0.789, FT4--1.41 02/08/16 TSH 0.503, FT4--1.63 08/19/15 A. FNA, Left Thyroid Anterior B. FNA, Thyroid Left Posterior Diagnosis A. BENIGN Consistent with a benign follicular nodule. Malignancy risk: 0-3% Recommended management: Clinical follow-up B. BENIGN Consistent with a benign follicular nodule. Malignancy risk: 0-3% Recommended management: Clinical follow-up 08/09/15 TSH 0.402, free T4--1.40 08/05/15 thyroid ultrasound: Comparison with 01/27/14, 01/28/13, and 01/24/12. Right lobe homogenousmeasuring 4.6 x 1.6 x 1.2 cm. Left lobe homogenous measuring 5.2 x 1.9 x 2.4 cm. A homogenous isoechoic nodule with a hypoechoic rim in the mid to inferior segment measures 3.9 x 1.8 x 2.2 cm (3.8 x 1.7 x 2.5 cm in 2013 and 3.9 x 1.7 x 2.7 cm in 2011); a hypoechoic nodule in the deep mid to inferior segment measures 14 x 6 x 10 cm, previously measures 11 x 5 x 9 cm and 2013 and 10 x 6 x5 mm in 2011. No new nodules are identified. Impression: Dominant isoechoic nodule left thyroid lobe has been stable since at least 2011. Hypoechoic nodule in the deep mid to inferior left thyroid lobe has mildly increased in size since 2011 now measuring up to 1.4 cm. No new nodules identified US THYROID 02/07/2017 9:19 AM Comparison: 08/05/2015, 01/27/2014 Findings: The right thyroid lobe is homogeneous in echotexture measuring 4.3 x 1.3 x 1.2 cm. The isthmus measures 3 mm in thickness. The left thyroid lobe is homogeneous in echotexture measuring 5.2 x 2.0 x 2.5 cm. It contains a solid nodule occupying the majority of the lobe with a small peripheral cystic component. This measures 4.2 x 1.7 x 2.6 cm. Internal Doppler signals present. Previously this measured 3.9 x 1.8 x 2.2 cm (although the prior measurement did not include the small peripheral cystic component) and 3.8 x 1.7 x 2.5 cm in 2013. The hypoechoic nodule in the deep portion of the inferior left thyroid lobe measures 1.4 x 0.5 x 0.8 cm, previously 1.4 x 0.6 x 1.0 cm. Impression: 1. Minimal change in size of the dominant nodule in the left thyroid lobe measuring up to 4.2 cm. This change in size is partly due to a small peripheral cystic component in this nodule. 2. No significant change in hypoechoic nodule in the deep inferior left thyroid lobe. 02/12/2019 US THYROID ONLY COMPARISON: 02/07/2017, 08/05/2015 01/24/2012. FINDINGS: The right lobe of the thyroid measures 4.4 x 1.1 x 1.2 cm. Thyroid isthmus measures 3 mm in thickness. The left lobe of the thyroid measures 5.2 x 1.8 x 2.3 cm. The background thyroid architecture and echogenicity is appropriate. There are no nodules or masses in the right lobe of the thyroid or the thyroid isthmus. There is a stable isoechoic solid left thyroid nodule, which measures 3.7 x 1.8 x2.5 cm. This is unchanged dating back to 2011. This is a TI-RADS category 3 nodule which shows 7 years of stability. There is a partially solid and partially cystic 1.6 cm left thyroid nodule. This solid component is slightly hypoechoic. This is a TI-RADS category 3 nodule is well. This nodule has only minimally increased in size from prior examinations and does not meet criteria for biopsy. IMPRESSION: Stable TI-RADS category 3 3.7 cm left thyroid nodule. This is benign given 7 years of stability. Minimal increase in size of a TI-RADS category 3 partially solid and cystic left thyroid nodule measuring 1.6 cm. This does not meet criteria for biopsy, but continued sonographic follow-up in 1 to 2years could be considered. The following portions of the patient's history were reviewed and updated as appropriate: allergies, current medications, past family history, past medical history, past social history, past surgicalhistory and problem list. Review of Systems Constitutional: Negative for appetite change, fatigue and unexpected weight change (intentional 46 pound weight loss). HENT: Negative for congestion, rhinorrhea, trouble swallowing and voice change. Eyes: Negative for pain, redness and visual disturbance. Respiratory: Negative for shortness of breath. Cardiovascular: Negative for chest pain and palpitations. Gastrointestinal: Negative for constipation and diarrhea. Endocrine: Positive for heat intolerance. Negative for cold intolerance. Musculoskeletal: Negative for neck pain. Skin: Negative for wound. +hair loss Neurological: Negative for tremors. Psychiatric/Behavioral: Positive for sleep disturbance. Objective: BP 108/70 Pulse 66 Ht 5' 7 Wt 80.3 kg (177 lb) BMI 27.72 kg/m Wt Readings from Last 3 Encounters: 02/20/19 80.3 kg (177 lb) 09/23/18 79.4 kg (175 lb) 03/04/18 101.3 kg (223 lb 6.4 oz) Physical Exam Constitutional: She is oriented to person, place, and time. She appears well-developed. HENT: Head: Normocephalic. Eyes: Pupils are equal, round, and reactive to light. Neck: Normal range of motion. Thyromegaly present. Left > right thyroid enlargement. Cardiovascular: Normal rate, regular rhythm and normal heart sounds. No murmur heard. Pulmonary/Chest: Effort normal and breath sounds normal. No respiratory distress. She has no wheezes. She has no rales. Musculoskeletal: General: No edema. Lymphadenopathy: She has no cervical adenopathy. Neurological: She is alert and oriented to person, place, and time. Skin: Skin is warm. No erythema. Psychiatric: She has a normal mood and affect. Judgment and thought content normal. Assessment/Plan: Diagnoses and associated orders for this visit: Multinodular goiter (nontoxic): Patient is status post FNA biopsy of dominant left thyroid nodule in 2011 with benign follicular cytology. Repeat FNA biopsy done 08/28 of 2 left nodules reveals benigncytology. There are no nodules noted in right lobe. Most recent ultrasound shows stable 3.7 cm nodule in left lobe and second nodule measured at 1.6 cm, very slightly changed over past 2 years. PLAN: Continue levothyroxine 50 g daily. Recheck labs in one year. Recheck thyroid ultrasound in 2-3 years (02/02-). If develops hyperthyroidism, consider autonomous nodule. - T4, Free; Future - TSH; Future Other Orders - levothyroxine (SYNTHROID, LEVOTHROID) 75 MCG tablet; Take 1 tablet daily. Kennedy Benavides MD documented in this encounter Additional Source Comments INFORMATION SOURCE (unrecogn ized section and content) DATE CREATED AUTHOR AUTHOR'S ORGANIZ ATION 10/08/2017 [facility] DATE CREATED AUTHOR AUTHOR'S ORGANIZ ATION 02/20/2019 [facility] DATE CREATED AUTHOR AUTHOR'S ORGANIZ ATION 06/08/2020 [facility] DATE CREATED AUTHOR AUTHOR'S ORGANIZ ATION 12/07/2022 [facility] DATE CREATED AUTHOR AUTHOR'S ORGANIZ ATION 12/20/2022 [employer] DATE CREATED AUTHOR AUTHOR'S ORGANIZ ATION 03/03/2023 [facility] DATE CREATED AUTHOR AUTHOR'S ORGANIZ ATION 03/20/2023 [facility] DATE CREATED AUTHOR AUTHOR[facility]S OR[facility]IZ ATION [facility] Reason for Visit (unrecogniz ed section and content) Reason Comments Thyroid Problem Reason Comments Thyroid Problem Reason Onset Date Comments Medication Refill 02/14/2023 Reason Comments Goiter Thyroid Problem Reason Comments pt c/o sore throat, cough x 1 week Reason Comments Sleep Study Specialty Diagnoses / Procedures Referred By Mike curry Referred To Contact Sleep Lab Diagnoses Severe obstructive sleep apnea Procedures In-Center Sleep Study (Non-Sleep Provider Only) Edgar Cutler MD [address] [facility] [address] [place] [address] Referral ID Status Reason Start Date Expiration Date V isits Requested Visits Authorized [id number] Authorized 03/26/2023 03/25/2024 1 1 Reason Comments Follow-up CPAP/Sleep study don e 04/05/23 Care Teams (unrecognized sec tion and content) Agribusiness Professor Relationship Specialty Start Date End Date Edgar Cutler MD [address] [place] [address] PCP - General Family Medicine 02/10/16 Agribusiness Professor Relationship Specialty Start Date End Date Edgar Cutler MD [address] [place] [address] PCP - General Family Medicine 02/10/16 Agribusiness Professor Relationship Specialty Start Date End Date Edgar Cutler MD [address] [place] [address] PCP - General Family Medicine 02/10/16 Agribusiness Professor Relationship Specialty Start Date End Date Edgar Cutler MD [address] [facility] [place] [place] [address] PCP - General 06/15/22 Agribusiness Professor Relationship Specialty Start Date End Date Edgar Cutler MD [address] [facility] [address] [place] [address] PCP - General 06/15/22 Agribusiness Professor Relationship Specialty Start Date End Date Edgar Cutler MD [address] [facility] [address] [place] [address] PCP - General 06/15/22 Edgar Cutler MD [address] [facility] [address] [place] [address] PCP - MMO ACO PCP 03/15/23 <item> Privacy Markings (unrecogniz ed section and content) Section Author: Kylee Mora PROHIBITION ON REDISCLOSURE OF CONFIDENTIAL INFORMATION This notice accompanies a disclosure of information concerning a client made to you with the consent of such client. FOR RECORDS PERTAINING TO PATIENTS WHO ARE OR HAVE BEEN ENROLLED IN A CHEMICAL DEPENDENCY/SUBSTANCEABUSE PROGRAM, SOME INFORMATION MAY BE OMITTED. This clinical summary was aggregated from multiple sources. Caution should be exercised in using it in the provision of clinical care. This summary normalizes information from multiple sources, and as a consequence, information in this document may materially change the coding, format and clinical context of patient data. In addition, data may be omitted in some cases. CLINICAL DECISIONS SHOULD BE BASED ON THE PRIMARY CLINICAL RECORDS. [employer] [facility]. provides no warranty or guarantee of the accuracy or completeness of information in this document.
== END | disposition home or self-care (01) ==
PROVIDERS: PCP Family Medicine; Referring Provider Nurse Practitioner Women's Health; Visit Provider Nurse Practitioner Women's Health
DX: Z12.31 Encounter for screening mammogram for malignant neoplasm of breast (principal)
CPT/HCPCS: 77063; 77067

== ENCOUNTER → 2023-09-11 | Outpatient (CLI) | payer OTHER, SELFPAY ==
--- NOTE | 2023-09-11 14:26 | US_ITS ---
INDICATION: post menopausal bleeding EXAMINATION: Ultrasound US Pelvis Non OB Complete With Transvaginal Imaging TECHNIQUE: Transabdominal and transvaginal pelvic ultrasound was performed. Grayscale, spectral waveform, and color flow Doppler evaluation of the adnexa. COMPARISON: None. FINDINGS: UTERUS: Anteverted. The uterus measures 9.2 cm in length.. There is no uterine mass. The endometrial stripe measures 9 mm in AP diameter which is thickened for postmenopausal patient. Few subendometrial cyst. Multiple nabothian cysts. RIGHT OVARY: Measures 2.7 x 1.2 x 2 cm. Non-enlarged, normal echogenicity. There is normal arterial inflow and venous outflow present in the right ovary. LEFT OVARY: Measures 1 x 1.9 x 1.6 cm. Non-enlarged, normal echogenicity. There is normal arterial inflow and venous outflow present in the left ovary. FREE FLUID: None. US/Pelvic w/ Transvaginal IMPRESSION: Thickened endometrium of 9 mm in a postmenopausal patient. Differential includes endometrial hyperplasia or endometrial carcinoma. Consider pelvic MRI w/ and w/out contrast for further evaluation. Electronically Signed: Dylan Shannon MD at 23:43 EDT ,
--- NOTE | 2023-09-18 | EMB_PTH ---
PATIENT: MEHDI ASHTON LOC: [facility], [place]#:[id number] AGE/SX: 57/F ROOM: RE09/11/[address]: NABILA Erwin : 1965 BED: DIS: 09/11/2023 SPEC #: [id number] RECD: 09/18/23 15:59 STATUS: JOSSUE DAVID #: [id number] ISMAEL: 09/18/23 00:[address]: Aleyda Vicente NP DEPT: SURGICAL PATHOLOGY RECD BY: Kory Garcia ENTERED: 09/19/23 07:29 SP TYPE: ENDOM BX/C VENUS DR: Dr. Carlos Cutler MD Tissues: Endometrium, NOS Procedures: Surgery Specimen Level IV HEADER OPERATION: Endometrial biopsy PRE-OP DIAGNOSIS: Abnormal uterine bleeding TISSUE SUBMITTED: Endometrial lining MICROSCOPIC DIAGNOSIS Endometrial biopsy: Mildly disordered proliferative endometrium. KIRT/mr 09/20/2023 COMMENT Focal mild chronic endometritis is noted. Case has been reviewed in consultation with Dr. Longo who concurs with the above diagnosis. IDC:AM MICROSCOPIC DESCRIPTION Slides are reviewed. GROSS DESCRIPTION Received is one container labeled with the patient's name and not further designated. The specimen consists of multiple irregular fragments of flores-pink soft tissue that in aggregate measure 2.5 x 0.5 x 0.1 cm. The specimen is totally submitted in one cassette. KIRT/ 09/19/2023 TC:5 CPT:43621
== END | disposition home or self-care (01) ==
PROVIDERS: PCP Family Medicine; Referring Provider Nurse Practitioner Women's Health; Visit Provider Nurse Practitioner Women's Health
DX: N95.0 Postmenopausal bleeding (principal)
CPT/HCPCS: 76830; 76856

== ENCOUNTER → 2023-09-18 | Outpatient (CLI) | payer OTHER, SELFPAY | END | disposition home or self-care (01) | LOC: LABSPEC 16:11 | PROVIDERS: PCP Family Medicine; Referring Provider Nurse Practitioner Women's Health; Visit Provider Nurse Practitioner Women's Health | DX: N93.9 Abnormal uterine and vaginal bleeding, unspecified (principal) ==

== ENCOUNTER 2024-01-14 09:56 | Day surgery (SDC) | payer OTHER, SELFPAY ==
--- NOTE | 2024-01-06 13:32 | EKG12_ITS ---
Test Reason : PREOP Blood Pressure : / mmHG Vent. Rate : 063 BPM Atrial Rate : 063 BPM P-R Int : 190 ms QRS Dur : 102 ms QT Int : 410 ms P-R-T Axes : 047 027 063 degrees QTc Int : 419 ms Normal sinus rhythm Normal ECG Confirmed by Hood Harp ([id number]), dictionary editor VIV LOVE ([id number]) on 01/07/2024 9:31:05 AM Referred By: Leelee Cruz Confirmed By:Hood Harp
[2024-01-06 14:23] LABS: Hematocrit 47.5 % (37-47); Hemoglobin 15.8 g/dL (12.0-15.0); Mean Corp Hgb Conc 33.3 g/dL (32-36); Mean Corpuscular Hgb 31.5 pg (27.0-32.0); Mean Corpuscular Volume 94.6 fL (81-99); Mean Platelet Vol. 10.4 fl (6.2-12.0); Platelet Count 391 K/mm3 (150-450); RBC Distribution Width CV 14.6 % (11.6-14.6); RBC Distribution Width SD 50.9 fl (35.1-43.9); Red Blood Count 5.02 M/mm3 (4.2-5.4); White Blood Count 7.4 K/mm3 (4.4-11.0)
[2024-01-06 15:00] LABS: Anion Gap 4 (5-15); BUN 13 mg/dL (7-18); BUN/Creat Ratio 15.3 RATIO (10-20); Calcium,Total 9.3 mg/dL (8.5-10.1); Chloride 105 mmol/L (98-107); Creatinine, Serum 0.85 mg/dL (0.55-1.02); EST Glomerular Filtration Rate 73 mL/min (>60); Est Glom Filt Rate - Afr Amer 88 mL/min (>60); Glucose 122 mg/dL (74-106); Potassium 4.1 mmol/L (3.5-5.1); Sodium Level 138 mmol/L (136-145)
[2024-01-14] VITALS (8 sets, daily range): BP systolic 117–153; BP diastolic 66–86; PULSE 55–74; RESP 16–20; TEMP 36.1–36.9; O2SAT 96–99; BMI 38.8
--- NOTE | 2024-01-14 07:29 | HP.PCM_ITS ---
History and Physical Intake Visit Reasons: D&C Symphion needs 20min Network Intelligence Analyst Required: No Is patient in pain?: No Feel stressed/tense/nervous/anxious/difficulty sleeping: only a little (upcoming surgery) Allergies Penicillins Allergy (Intermediate, Verified 01/06/24 14:51) PT UNSURE OF REACTIONEnvironmental Allergies: Uncoded Allergy (Verified 01/06/24 14:51) Contact Dermatitisdoxycycline Adverse Reaction (Intermediate, Verified 01/06/24 14:51) Other Medications ?Medication ?Instructions ?Recorded ?Confirmed ?Type levothyroxine 50 mcg capsule 50 mcg PO DAILY 11/24/20 01/06/24 History triamcinolone acetonide 0.1 % 1 applic topical DAILY PRN itching 01/02/24 01/06/24 History topical cream Is last menstrual period known: No Post menopausal: Yes Patient : No : No PFSH Medical History (Updated 01/06/24 @ 15:[address] Leelee Cruz MD) Cancer Thyroid disease High cholesterol CPAP (continuous positive airway pressure) dependence Sleep apnea Wears contact lenses Wears partial dentures Post-menopausal Low iron Migraine headache Heartburn Shortness of breath on exertion Non-smoker Leg cramps DVT (deep venous thrombosis) History of edema History of echocardiogram Aortic insufficiency Cardiology follow-up encounter Hypothyroidism Surgical History History of ankle surgery Hx of wisdom tooth extraction Status post surgical removal of malignant neoplasm of skin History of splenectomy Family History Mother Heart diseaseFather Hypertension GoutSister Lymphoma Social History household members: spouse and children number of children: 4 current occupational status: employed current occupation: [employer]- works from home. history of recent travel: No sexually active: Yes Smoking Status: Never smoker alcohol intake: never substance use type: does not use what type of physical activity do you participate in: walking seatbelt use: always do you feel safe at home: Yes additional social history: - Jose Manuel [facility] D&C Symphion needs 20min Details: MEHDI ASHTON is a 58 year old who presents for consultation for PMB she had over the summer, emb showed proliferative. she hasn't had bleeding since, no pelvic pain pressure since. she denies any UI. plan evaluation of lining to have more thorough examination and complete sampling per patient request. Female Reproductive History Menopausal Symptoms: No night sweats History 4 Elective abortions Hx Para 4 Spontaneous abortions Hx # Term Pregnancies Ectopic pregnancies Hx # Pregnancies Multiple births # of living children 4 Past Pregnancies Del. Date Name GA/Weeks Outcome Route Bth Weight Infant [facility] Azeem 1993 Unknown Laci 1995 Unknown Johann 1997 Unknown Shikha 2002 ROS Const Constitutional: Reports fatigue and weight gain; Denies night sweats or weight loss ENT ENT: Reports system reviewed and no additional complaints, except as documented Cardio Card: Denies chest pain Resp Resp: Denies cough or dyspnea GI GI: Reports as per HPI; Denies abdominal pain, constipation, nausea or vomiting : Denies nipple discharge, urinary frequency, urinary incontinence, urinary hesitancy, urinary urgency, vaginal discharge, vaginal dryness, vaginal odor or vaginal pruritus Musc Musc: Reports arthralgias and back pain; Denies muscle weakness Skin Skin/Breast: Denies alopecia, change in hair, dry skin, breast mass, breast pain, breast skin changes or nipple discharge Neuro Neuro: Reports system reviewed and no additional complaints, except as documented Psych Psych: Reports system reviewed and no additional complaints, except as documented Endo Endo: Denies cold intolerance, excessive sweating, heat intolerance or polydipsia Neal/Lymph Hematologic/Lymphatic: Denies easy bleeding, Denies easy bruising and Denies lymphadenopathy Exam Const General: cooperative, healthy appearing, comfortable and no acute distress Orientation: alert [facility] Head: normal to inspection and normocephalic Ears: hearing grossly normal bilaterally and external ears normal Nose: external nose normal and nares normal Face and sinus: normal facial exam Neck Neck: normal visual inspection and no lymphadenopathy Thyroid: thyroid normal Chest Chest palpation & inspection: abnormal inspection of the chest Resp Effort & Inspection: normal respiratory effort Auscultation: clear to auscultation bilaterally Cardio Rate: regular rate Rhythm: regular rhythm Heart Sounds: S1 normal and S2 normal GI Inspection: normal to inspection and non-distended Palpation: soft and no hepatosplenomegaly Musc Other: gross motor intact no deficits, full bilateral strength Skin General: no rashes or lesions noted Neuro General: patient alert, patient awake, moves all extremities and no focal motor deficits Motor: muscle tone normal throughout Extrem General: normal to inspection and no pedal edema Psych Appearance: grossly normal Mental Status: mental status grossly normal Affect: normal affect Speech and Movement: speech and movement normal Coding Level of Care Code Off vis,est,level 4 Diagnoses DVT (deep venous thrombosis) I82.409 Assessment and Plan Assessment and Plan postmenopausal bleeding- plan d and c hysterosocpy h\o DVT (deep venous thrombosis): Comment: RIGHT LEG IN THE PAST, post travel, recommend in preop and 1 week postop. caprini risk score 7 days. Plan After discussing the patient's diagnosis and treatment plan options, patient wishes to proceed with surgical management. I have discussed with the patient the risks, benefits, and alternatives of the procedure which include but are not limited to risks of anesthesia, bleeding, infection, possible damage to bowel, bladder, or surrounding vasculature which could lead to additional surgery to evaluate any complications. Patient agrees to procedure and wishes to proceed. ACOG/uptodate references given for additional information regarding procedure. Assessment & Plan Assessment/Plan (1) PMB (postmenopausal bleeding): (2) DVT (deep venous thrombosis): (3) Endocervical polyp:
[2024-01-14] MEDS: Lactated Ringers 1,000 ML 15 ML IV (10:40)
[2024-01-14] MEDS: Enoxaparin 40 MG/0.4 ML Syringe SC (10:40)
--- NOTE | 2024-01-14 10:55 | PRE.ANES_ITS ---
ASA Classification* ASA Classification ASA Classification: 2 Assessment & Plan Anesthesia* Anesthesia Assessment Anesthesia Assessment: Discussed sedation and/or anesthesia options, risks, benefits, and alternatives with patient/parents/legal guardian/POA. Questions invited. The patient/parents/legal guardian/POA seems to understand and agrees to proceed with anesthesia plan. Reviewed the physical assessment, medical history, allergy history and patient home medications list prior to surgery/procedure/anesthetic and documented any changes. Performed airway and anesthesia risk assessments. Anesthesia Type Anesthesia Type: MAC History Source History Obtained from:: Patient and Chart Anesthesia Focused Assessment* Temperature: 98.5 F Pulse Rate: 74 Blood Pressure: 153/86 Respiratory Rate: 16 Pulse Ox: 98 Oxygen Delivery Method: Room Air Airway Assessment Mouth opens: >3 cm Mallampati Score: III Teeth Condition: Partial (Lower partial is out.) Neck Range of motion (ROM): Full ROM Focused Labs Anesthesia Preop lab: CBC WBC 7.4 K/mm3 (4.4-11.0) 01/06/24 14:03 RBC 5.02 M/mm3 (4.2-5.4) 01/06/24 14:03 Hgb 15.8 g/dL (12.0-15.0) H 01/06/24 14:03 Hct 47.5 % (37-47) H 01/06/24 14:03 Plt Count 391 K/mm3 (150-450) 01/06/24 14:03 CHEMISTRY Potassium 4.1 mmol/L (3.5-5.1) 01/06/24 14:03 Sodium 138 mmol/L (136-145) 01/06/24 14:03 BUN 13 mg/dL (7-18) 01/06/24 14:03 Creatinine 0.85 mg/dL (0.55-1.02) 01/06/24 14:03 Glucose 122 mg/dL (74-106) H 01/06/24 14:03 TSH 1.21 uIU/mL (0.358-3.74) 06/25/22 11:57 COAG Pre-Assessment Diagnosis/Proposed Procedure Planned Operative Procedure(s): Hysteroscopy,D&C Symphion Anesthesia History Anesthesia History - dice person: Anesthesia History - dice person Hx Hospitalization No 01/02/24 10:12 Any Problems With Anesthesia No 01/02/24 10:12 Cholinesterase deficiency No 01/02/24 10:12 You/Your Family Experience No 01/02/24 10:12 fever (hyperthermia) with Relationship Recent Exposure to Contagious No 01/14/24 10:25 Disease Does patient have nerve No 01/02/24 10:12 stimulator Patient instructed to have device shut off --Does patient have Pacemaker No 01/14/24 10:25 or ICD? When Was Last Pacemaker Check QUESTION #4 FULL TEXT: You/Your Family Experience fever (hyperthermia) with Anesthesia Last Oral Intake Last Oral intake: Last Oral Intake NPO since 07:30 01/14/24 10:25 Meds taken in AM with sips of Yes 01/14/24 10:25 water? Meds patient instructed to levothyroxine 01/14/24 10:25 take am of surgery Any additional information?: Yes Meds taken in AM with sips of water?: Yes PONV PONV - dice person: PONV - dice person Female Yes 01/02/24 10:12 HX of Motion Sickness No 01/02/24 10:12 HX of N/V After Surgery No 01/02/24 10:12 Non-Smoker Yes 01/02/24 10:12 Duration of Surgery greater No 01/02/24 10:12 than 60 minutes Number of Risk Factors 2 01/02/24 10:12 PONV Score Moderate Risk 01/02/24 10:12 Height & Weight Height & Weight: Anesthesia: Height & Weight Height 5 ft 7 in 01/14/24 10:25 Weight: 112.4 kg 01/14/24 10:25 Body Mass Index (BMI) 38.8 01/14/24 10:25 Respiratory Assessment Respiratory Assessment - dice person: Respiratory Tract Infection Hx - dice person Hx Respiratory Tract Infection No 01/02/24 10:12 STOP Sleep Apnea STOP Sleep Apnea - dice person: STOP Sleep Apnea - dice person Hx Hypertension No 01/02/24 10:12 Hx Sleep Apnea Yes 01/02/24 10:12 CPAP Yes 01/02/24 10:12 BIPAP No 01/02/24 10:12 Do you snore loudly (louder than talking or can be heard Do you often feel tired/ fatigued/ sleepy during daytime? Has anyone observed you stop breathing during sleep? STOP Results Positive 01/02/24 10:12 QUESTION #5 FULL TEXT : Do you snore loudly (louder than talking or can be heard through closed doors)? Tobacco Use History Tobacco Use History - dice person: Tobacco Use History - dice person Tobacco Use Smoking Status Never smoker 01/02/24 10:12 Hx Tobacco Use No 01/02/24 10:12 Years Smoking Packs Smoked per Day Smoking Cessation Date was within the last 15 years Hx Smoking Cessation Date Hx Smoking Cessation Counseling Hematologic Medial History Hematologic Hx - dice person: Hematologic Medical Hx - neonatal critical care nurse Hx of Blood Transfusion No 01/02/24 10:12 Hx of Transfusion in last 3 No 01/02/24 10:12 Months Date of Last Transfusion (if within last 3 months) Ever experience any problems No 01/02/24 10:12 with transfusion(s)? Specify any problems Hx of Preganancy in last 3 No 01/02/24 10:12 Months Nurse Filling Out Transfusion [facility]LE[facility]TR[facility] 01/02/24 10:12 & Questions: Date: 01/02/24 01/02/24 10:12 Time: 10:01/02/24 10:12 Patient unable to answer at this time (ie. confused, unrespo /Reproduction History /Reproductive History - dice person: /Reproductive Hx- dice person Hx Now No 01/02/24 10:12 Gestational Age (in weeks): EDC: Hx Hx Para Hx Section SAB No 01/06/24 14:54 Active Medications Active Medications: Current Medications Generic Name Dose Route Start Last Admin Trade Name Freq PRN Reason Stop Dose Admin Lactated Ringer's 1,000 mls @ 15 mls/hr 01/14/24 10:15 01/14/24 10:40 IV 15 mls/hr .Q48H JAICNTO Administration PFSH Medical History Cancer Thyroid disease High cholesterol CPAP (continuous positive airway pressure) dependence Sleep apnea Wears contact lenses Wears partial dentures Post-menopausal Low iron Migraine headache Heartburn Shortness of breath on exertion Non-smoker Leg cramps DVT (deep venous thrombosis) History of edema History of echocardiogram Aortic insufficiency Cardiology follow-up encounter Hypothyroidism Home Medications ?Medication ?Instructions ?Recorded ?Last Taken ?Type levothyroxine 50 mcg capsule 50 mcg PO DAILY 11/24/20 01/14/24 History triamcinolone acetonide 0.1 % 1 applic topical DAILY PRN itching 01/02/24 Unknown History topical cream Allergy/AdvReac Type Severity Reaction Status Date / Time Penicillins Allergy Intermediate PT UNSURE Verified 01/14/24 10:20 OF REACTION Environmental Allergies: Allergy Contact Verified 01/14/24 10:20 Uncoded Dermatitis doxycycline AdvReac Intermediate Other Verified 01/14/24 10:20 Family History Mother Heart disease Father Hypertension Gout Sister Lymphoma Surgical History History of ankle surgery Hx of wisdom tooth extraction Status post surgical removal of malignant neoplasm of skin History of splenectomy Social History household members: spouse and children number of children: 4 current occupational status: employed 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 history of recent travel: No sexually active: Yes Smoking Status: Never smoker alcohol intake: never substance use type: does not use what type of physical activity do you participate in: walking seatbelt use: always do you feel safe at home: Yes additional social history: - Jose Manuel Review of Systems (Anesthesia) ROS Narrative System reviewed and no additional complaints, except as documented.
--- NOTE | 2024-01-14 11:40 | EMB_PTH ---
PATIENT: MEHDI ASHTON [place] [facility] [id number] AGE/SX: 58/F ROOM: RE01/14/[address]: Dr. Leelee Cruz MD : 1965 BED: DIS: 01/14/2024 SPEC #: [id number] RECD: 01/14/24 18:13 STATUS: JOSSUE HERNANDEZ #: [id number] ISMAEL: 01/14/24 11:[address]: Leelee Cruz DEPT: SURGICAL PATHOLOGY RECD BY: Kory Garcia ENTERED: 01/15/24 10:08 SP TYPE: ENDOM BX/C OTHR DR: Dr. Carlos Cutler MD Tissues: Endometrium, NOS Procedures: Surgery Specimen Level IV HEADER OPERATION: Hysteroscopy, D&C PRE-OP DIAGNOSIS: Post menopausal bleeding, endocervical polyp TISSUE SUBMITTED: Endometrial curettings MICROSCOPIC DIAGNOSIS Endometrial curettings: Polypoid fragment of endometrium with simple hyperplasia without atypia. Detached fragments of benign superficial squamous mucosa. AM. 01/16/2024 COMMENT Case has been reviewed in consultation with Dr. Rodriguez who concurs with the above diagnosis. IDC:SJ MICROSCOPIC DESCRIPTION Slides are reviewed. GROSS DESCRIPTION Received in fixative is one container labeled with the patient's name and designated Endometrial curettings. The specimen consists of multiple irregular fragments of hemorrhagic soft tissue mixed with mucoid tissue that in aggregate measure 2.5 x 1.2 x 0.2 cm. The specimen is totally submitted in one cassette. 01/15/2024 TC:1 CPT:53035
--- NOTE | 2024-01-14 14:01 | OP.PCM_ITS ---
Problems Associated Problem List Diagnoses (1) Endocervical polyp: (2) Endometrial thickening on ultrasound: (3) PMB (postmenopausal bleeding): Report of Operation Date of Procedure: 01/14/24 Pre-Operative Diagnosis: see problem list Post-Operative Diagnosis: same Surgery/Procedure Performed:: D&C hysteroscopy Surgeon: Leelee Cruz ordinary seaman: None Type of Anesthesia: Local MAC Special Medications: none Specimen's removed: EMC Drains: none Estimated Blood Loss (mL): 50 Fluids Replaced: crystalloid Description of Procedure: Patient was prepped and draped in a normal sterile fashion under MAC anesthesia. A weighted speculum was placed in the vagina and the anterior lip of the cervix was grasped with a single-tooth tenaculum. A paracervical block was placed with 1% lidocaine. Cervix was progressively dilated to allow passage of a 5 mm hysteroscope. The lining was fully visualized and noted to have no abnormalities . Uterine sounded to 8 cm. Curettage was performed and tissue removed , sent to pathology. All instruments were removed from the vagina and excellent hemostasis was noted. Patient was awoken and taken to recovery in stable condition. Grafts/Implants Used: none Procedure Start Time: 13:47 Procedure Stop Time: 14:17 Complications none Admit VTE Documentation VTE Present on Admission: No VTE Mechan Device Prophylaxis: SCD's Multi Select Codes Urinary/Genital Urinary/Genital CPT Codes: 69461 Hysteroscopy,EMC, Polypectomy
--- NOTE | 2024-01-14 14:03 | DCINST_ITS ---
Discharge Instructions Diet Discharge Diet: No restrictions Activity Discharge Activity: Return to Normal Activity, May Shower and May Take a Tub Bath (after 1 week) May resume sexual activity in: 1-2 weeks Weight Bearing Status: Weight bearing as tolerated Lifting Restrictions: none Dressing / Incision Call your doctor if you observe: Fever of 101 or Higher, Using more than 1 pad per hour, Shortness of breath and Uncontrolled pain Follow Up Care Please Follow Up With: Leelee Cruz MD When: Call [phone] to schedule appointment. Test Results: Test results from this visit will be discussed in further detail at your follow- up appointment, if applicable. Discharge Plan Admission Attending Provider: Leelee Cruz Primary Care Provider: Carlos Cutler Instructions Print Language: Mongolian Discharge Orders/Prescriptions Prescriptions: New enoxaparin [Lovenox] 40 mg/0.4 mL syringe 40 mg subcut DAILY 7 Days Qty: 2.8 0RF No Action levothyroxine 50 mcg capsule 50 mcg PO DAILY triamcinolone acetonide 0.1 % cream 1 applic topical DAILY PRN (Reason: itching) Other Ambulatory Orders: 12 Lead EKG (Routine) Timeframe: 20240106 Location: None Selected Ordered By: Dr. Leelee Cruz Referrals / Follow Up: Carlos Cutler MD [Primary Care Provider] - Disposition Disposition (needs filled in before D/C Order can be placed): Home, Self Care
[2024-01-14] MEDS: Lidocaine 1% (20 ml mdv) 20 ML Vial (14:18)
--- NOTE | 2024-01-14 14:29 | PCM.POST.ANE ---
Anesthesia: Postop Eval I Current Vital Signs Temperature: 97.6 F Pulse Rate: 72 Blood Pressure: 117/68 Respiratory Rate: 20 Pulse Ox: 97 Oxygen Delivery Method: Room Air Assessment Airway patent: Yes Spontaneous unlabored respirations: Yes Mental status: Awake nausea: No Vomiting: No Anesthesia Complication: No Fluid Hydration Crystalloid volume administer (ml): 900 Total IV fluid infused: 900 Progress Note Anesthesia document: Postop Eval 1 completed: Yes
--- NOTE | 2024-01-14 16:43 | POSTOPAN2_ITS ---
Anesthesia Postop Eval I Sum Postop Eval Completion status Anesthesia document: Postop Eval 1 completed: Yes Anesthesia Postop Eval I Summary Anesthesia Postop Eval I Summary: Anesthesia Postop Eval I: Assessment Summary Airway patent Yes 01/14/24 14:30 AUTOMATIC LEHR OPERATOR.[email or web address] Spontaneous unlabored Yes 01/14/24 14:30 AUTOMATIC LEHR OPERATOR.JDEF respirations Mental status Awake 01/14/24 14:30 AUTOMATIC LEHR OPERATOR.JDEF nausea No 01/14/24 14:30 AUTOMATIC LEHR OPERATOR.JDEF Vomiting No 01/14/24 14:30 AUTOMATIC LEHR OPERATOR.JDEF Anesthesia Postop Eval I: Fluid Summary Crystalloid volume administer 900 01/14/24 14:30 AUTOMATIC LEHR OPERATOR.JDEF (ml) Colloids volume administered ( ml) Blood Product volume administered (ml) Total IV fluid infused 900 01/14/24 14:30 AUTOMATIC LEHR OPERATOR.JDEF Anesthesia Postop Eval I: Summary Notes Anesthesia Complication No 01/14/24 14:30 AUTOMATIC LEHR OPERATOR.JDEF Anesthesia Complication Comment: Post-operative progress note Anesthesia: Postop Eval II Evaluation Mental status: Awake and Calm Pain Level: 1 nausea: No Vomiting: No Complications Anesthesia Complication: No
--- NOTE | 2024-01-14 16:43 | PCM.POSTANE2 ---
Anesthesia Postop Eval I Sum Postop Eval Completion status Anesthesia document: Postop Eval 1 completed: Yes Anesthesia Postop Eval I Summary Anesthesia Postop Eval I Summary: Anesthesia Postop Eval I: Assessment Summary Airway patent Yes 01/14/24 14:30 ANIMAL CARETAKER SUPERVISOR.[email or web address] Spontaneous unlabored Yes 01/14/24 14:30 ANIMAL CARETAKER SUPERVISOR.JDEF respirations Mental status Awake 01/14/24 14:30 ANIMAL CARETAKER SUPERVISOR.JDEF nausea No 01/14/24 14:30 ANIMAL CARETAKER SUPERVISOR.JDEF Vomiting No 01/14/24 14:30 ANIMAL CARETAKER SUPERVISOR.JDEF Anesthesia Postop Eval I: Fluid Summary Crystalloid volume administer 900 01/14/24 14:30 ANIMAL CARETAKER SUPERVISOR.JDEF (ml) Colloids volume administered ( ml) Blood Product volume administered (ml) Total IV fluid infused 900 01/14/24 14:30 ANIMAL CARETAKER SUPERVISOR.JDEF Anesthesia Postop Eval I: Summary Notes Anesthesia Complication No 01/14/24 14:30 ANIMAL CARETAKER SUPERVISOR.JDEF Anesthesia Complication Comment: Post-operative progress note Anesthesia: Postop Eval II Evaluation Mental status: Awake and Calm Pain Level: 1 nausea: No Vomiting: No Complications Anesthesia Complication: No
== END 2024-01-14 15:57 | disposition home or self-care (01) ==
LOC: SDC 10:03 → AC 10:04
PROVIDERS: PCP Family Medicine; Referring Provider Obstetrics & Gynecology; Visit Provider Obstetrics & Gynecology
PROC: 0UB98ZZ Excision of Uterus, Via Natural or Artificial Opening Endoscopic (ICD-10-PCS; CPT 58558; principal; 2024-01-14 11:25)
DX: N85.01 Benign endometrial hyperplasia (principal); N95.0 Postmenopausal bleeding; E03.9 Hypothyroidism, unspecified; G47.30 Sleep apnea, unspecified; Z79.890 Hormone replacement therapy; Z86.718 Personal history of other venous thrombosis and embolism
CPT/HCPCS: 58558; 36415; 80048; 85027; 86850; 86900; 86901; 88305; 93005; J7120

== ENCOUNTER 2024-07-13 15:30 | Outpatient (CLI) | payer OTHER, SELFPAY ==
--- NOTE | 2024-07-13 14:50 | EMB_PTH ---
PATIENT: MEHDI ASHTON LOC: [facility] U#:[id number] AGE/SX: 58/F ROOM: RE07/13/[address]: Dr. Leelee Cruz MD : 1965 BED: DIS: 07/13/2024 SPEC #: [id number] RECD: 07/14/24 10:09 STATUS: JOSSUE DAVID #: [id number] ISMAEL: 07/13/24 14:[address]: Leelee Cruz DEPT: SURGICAL PATHOLOGY RECD BY: Maninder Jade ENTERED: 07/14/24 10:09 SP TYPE: ENDOM BX/C VENUS DR: Dr. Carlos Cutler MD Tissues: A - Endometrium, NOS Procedures: Surgery Specimen Level IV HEADER OPERATION: Endometrial biopsy PRE-OP DIAGNOSIS: Simple endometrial hyperplasia without atypia TISSUE SUBMITTED: A- Endometrial tissue MICROSCOPIC DIAGNOSIS A. Endometrium, biopsy: * Inactive endometrium with progestin effect. MICROSCOPIC DESCRIPTION Slides are reviewed. GROSS DESCRIPTION A. Received in formalin in a container labeled with the patient's name, date of , and endometrial tissue are multiple flores-pink and red fragments of soft tissue admixed with blood clot material measuring 2.0 x 1.5 x 0.7 cm in aggregate. Submitted in toto in A1-2. [facility] 07-14-2024 CPT:26393
== END 2024-07-13 23:59 | disposition home or self-care (01) ==
LOC: LABSPEC 15:30
PROVIDERS: PCP Family Medicine; Referring Provider Obstetrics & Gynecology; Visit Provider Obstetrics & Gynecology
DX: N85.01 Benign endometrial hyperplasia (principal)
CPT/HCPCS: 88305

== ENCOUNTER 2024-10-27 07:47 | Day surgery (SDC) | payer OTHER, SELFPAY ==
--- NOTE | 2024-10-14 12:08 | EKG12_ITS ---
Test Reason : PREOP Blood Pressure : */* mmHG Vent. Rate : 70 BPM Atrial Rate : 70 BPM P-R Int : 192 ms QRS Dur : 98 ms QT Int : 382 ms P-R-T Axes : 42 12 48 degrees QTcB Int : 412 ms Normal sinus rhythm Normal ECG Confirmed by NASH MARINO, THERESA ([id number]), graphic editor LIZ CHANEL ([id number]) on 10/14/2024 1:39:54 PM Referred By: Leelee Cruz Confirmed By: THERESA CAO MD
--- NOTE | 2024-10-14 12:08 | EKG12_ITS ---
Test Reason : PREOP Blood Pressure : */* mmHG Vent. Rate : 70 BPM Atrial Rate : 70 BPM P-R Int : 192 ms QRS Dur : 98 ms QT Int : 382 ms P-R-T Axes : 42 12 48 degrees QTcB Int : 412 ms Normal sinus rhythm Normal ECG Confirmed by NASH MARINO, THERESA ([id number]), purchase request editor LIZ CHANEL ([id number]) on 10/14/2024 1:39:54 PM Referred By: Leelee Cruz Confirmed By: THERESA CAO MD
[2024-10-14 13:28] LABS: Hematocrit 45.0 % (37-47); Hemoglobin 15.1 g/dL (12.0-15.0); Immature Granulocytes Count 0.030 X10^3/uL (0.0-0.0); Mean Corp Hgb Conc 33.6 g/dL (32-36); Mean Corpuscular Volume 94.3 fL (81-99); Mean Platelet Vol. 9.8 fl (6.2-12.0); NRBC Flagged by Analyzer 0 % (0-5); Platelet Count 432 K/mm3 (150-450); RBC Distribution Width CV 14.1 % (11.6-14.6); RBC Distribution Width SD 49.2 fl (35.1-43.9); Red Blood Count 4.77 M/mm3 (4.2-5.4); White Blood Count 8.3 K/mm3 (4.4-11.0)
[2024-10-14 14:01] LABS: AST(SGOT) 23 U/L (<=31); Alanine Aminotransfer ALT/SGPT 17 U/L (<=34); Albumin, Serum 4.1 g/dL (3.5-5.0); Alkaline Phosphatase 108 U/L (35-104); Anion Gap 11 (5-15); BUN 19 mg/dL (4-19); BUN/Creat Ratio 22.0 RATIO (10-20); Calcium,Total 9.3 mg/dL (7.6-11.0); Carbon Dioxide 21.1 mmol/L (21.0-32.0); Chloride 105 mmol/L (98-108); Globulin 3.8 g/dL (2.2-4.2); Glucose 78 mg/dL (70-99); Potassium 4.3 mmol/L (3.3-5.1)
[2024-10-14 14:04] LABS: Magnesium 2.6 mg/dL (1.5-2.2)
--- NOTE | 2024-10-26 17:55 | PCM.HP.BLA ---
History and Physical Date of Admission: 10/27/24 Intake Vital Signs 07/13/2513:26 09/10/2514:52 10/14/2512:44 10/14/2512:46 Height 5 ft 7 in 5 ft 7 in 5 ft 7 in 5 ft 7 in Weight: 255 lb 253 lb 4 oz BMI 39.9 39.6 BP 128/82 H 142/80 H Intake Visit Reasons: Hyst Checking Clerk Required: No Is patient in pain?: No Allergies Penicillins Allergy (Intermediate, Verified 10/14/24 13:44) PT UNSURE OF REACTIONEnvironmental Allergies: Uncoded Allergy (Verified 10/14/24 13:44) Contact Dermatitisdoxycycline Adverse Reaction (Intermediate, Verified 10/14/24 13:44) Other Medications ?Medication ?Instructions ?Recorded ?Confirmed ?Type levothyroxine 50 mcg capsule 50 mcg PO DAILY 11/24/20 10/14/24 History triamcinolone acetonide 0.1 % 1 applic topical DAILY PRN itching 01/02/24 10/14/24 History topical cream megestrol 40 mg tablet 40 mg PO DAILY 10/13/24 10/14/24 History allergy eye drops EACH EYE DAILY 10/14/24 10/14/24 History Patient : No : No PFSH Medical History Cancer Thyroid disease High cholesterol CPAP (continuous positive airway pressure) dependence Sleep apnea Wears contact lenses Wears partial dentures Post-menopausal Low iron Migraine headache Heartburn Shortness of breath on exertion Non-smoker Leg cramps DVT (deep venous thrombosis) History of edema History of echocardiogram Aortic insufficiency Cardiology follow-up encounter Hypothyroidism Surgical History History of hysteroscopy History of ankle surgery Hx of wisdom tooth extraction Status post surgical removal of malignant neoplasm of skin History of splenectomy Family History Mother Heart diseaseFather Hypertension GoutSister Lymphoma Social History household members: spouse and children number of children: 4 current occupational status: employed current occupation: [employer]- works from home. history of recent travel: No sexually active: Yes Smoking Status: Never smoker alcohol intake: never substance use type: does not use what type of physical activity do you participate in: walking seatbelt use: always do you feel safe at home: Yes additional social history: - Jose Manuel HPI Hyst Details: MEHDI ASHTON is a 59 year old who presents for preop consult. she has had persistent postmenopausal bleeding despite progesterone therapy for endoemtrial hyperplasia, has a uterine fibroid present also. denies any crmaping pelvic pain or pressure Female Reproductive History Menopausal Symptoms: No night sweats History 4 Elective abortions Hx Para 4 Spontaneous abortions Hx # Term Pregnancies Ectopic pregnancies Hx # Pregnancies Multiple births # of living children 4 Past Pregnancies Del. Date Name GA/Weeks Outcome Route Bth Weight [facility] Azeem 1993 Unknown Laci 1995 Unknown Jhoann 1997 Unknown Shikha 2002 ROS Const Constitutional: Denies fatigue, night sweats, weight gain or weight loss ENT ENT: Reports system reviewed and no additional complaints, except as documented Cardio Card: Denies chest pain Resp Resp: Reports dyspnea; Denies cough GI GI: Reports as per HPI; Denies abdominal pain, constipation, nausea or vomiting : Denies nipple discharge, urinary frequency, urinary incontinence, urinary hesitancy, urinary urgency, vaginal discharge, vaginal dryness, vaginal odor or vaginal pruritus Musc Musc: Denies arthralgias, back pain or muscle weakness Skin Skin/Breast: Reports change in hair; Denies alopecia, dry skin, breast mass, breast pain, breast skin changes or nipple discharge Neuro Neuro: Reports system reviewed and no additional complaints, except as documented Psych Psych: Reports system reviewed and no additional complaints, except as documented Endo Endo: Reports cold intolerance; Denies excessive sweating, heat intolerance or polydipsia Neal/Lymph Hematologic/Lymphatic: Denies easy bleeding, Denies easy bruising and Denies lymphadenopathy Exam Const General: cooperative, healthy appearing, comfortable and no acute distress Orientation: alert HENMT Head: normal to inspection and normocephalic Ears: hearing grossly normal bilaterally and external ears normal Nose: external nose normal and nares normal Face and sinus: normal facial exam Neck Neck: normal visual inspection and no lymphadenopathy Thyroid: thyroid normal Chest Chest palpation & inspection: normal inspection of the chest Resp Effort & Inspection: normal respiratory effort Auscultation: clear to auscultation bilaterally Cardio Rate: regular rate Rhythm: regular rhythm Heart Sounds: S1 normal and S2 normal GI Inspection: normal to inspection and non-distended Palpation: soft and no hepatosplenomegaly Musc Other: gross motor intact no deficits, full bilateral strength Skin General: no rashes or lesions noted Neuro General: patient alert, patient awake, moves all extremities and no focal motor deficits Motor: muscle tone normal throughout Extrem General: normal to inspection and no pedal edema Psych Appearance: grossly normal Mental Status: mental status grossly normal Affect: normal affect Speech and Movement: speech and movement normal Coding Level of Care Code No Charge Diagnoses Postmenopausal bleeding N95.0 Simple endometrial hyperplasia without atypia N85.01 DVT (deep venous thrombosis) I82.409 Assessment and Plan Assessment and Plan (1) Postmenopausal bleeding: Status: Acute Comment: Pelvic US shows persistent thickening and adenomyosis, s/p Megace and d and c hysteroscopy, discussed options plan TVHBS (2) Simple endometrial hyperplasia without atypia: Status: Acute Comment: s/p megace (3) DVT (deep venous thrombosis): Status: Acute Comment: RIGHT LEG IN THE PAST, post travel, recommend in preop and 2 week postop. (4) PMB (postmenopausal bleeding): Status: Acute Comment: s/p treatment for hyperplasia. persistent may be due to adenomyosis Plan After discussing the patient's diagnosis and treatment plan options, patient wishes to proceed with surgical management. I have discussed with the patient the risks, benefits, and alternatives of the procedure which include but are not limited to risks of anesthesia, bleeding, infection, possible damage to bowel, bladder, or surrounding vasculature which could lead to additional surgery to evaluate any complications. Patient agrees to procedure and wishes to proceed. ACOG/uptodate references given for additional information regarding procedure.
[2024-10-27] VITALS (14 sets, daily range): BP systolic 115–139; BP diastolic 58–79; PULSE 68–80; RESP 16; TEMP 36.2–36.8; O2SAT 93–97; BMI 39.6
[2024-10-27] MEDS: Magnesium 1 GM over 15 mins IV (08:33)
[2024-10-27] MEDS: Lactated Ringers 1,000 ML 40 ML IV (08:33)
[2024-10-27] MEDS: Scopolamine 1mg/72hr Patch 1 PATCH TD (08:38)
[2024-10-27 08:53] LABS: Hematocrit 43.7 % (37-47); Hemoglobin 15.1 g/dL (12.0-15.0); Mean Corp Hgb Conc 34.6 g/dL (32-36); Mean Corpuscular Volume 92.6 fL (81-99); Mean Platelet Vol. 9.7 fl (6.2-12.0); Platelet Count 419 K/mm3 (150-450); RBC Distribution Width CV 13.9 % (11.6-14.6); RBC Distribution Width SD 47.5 fl (35.1-43.9); Red Blood Count 4.72 M/mm3 (4.2-5.4); White Blood Count 6.8 K/mm3 (4.4-11.0)
[2024-10-27] MEDS: DEXTROSE 5% IV (08:58)
[2024-10-27] MEDS: WATER IV (08:58)
[2024-10-27] MEDS: GENTAMICIN IV (08:58)
--- NOTE | 2024-10-27 09:28 | PRE.ANES_ITS ---
ASA Classification* ASA Classification ASA Classification: 3 Assessment & Plan Anesthesia* Anesthesia Assessment Anesthesia Assessment: Discussed sedation and/or anesthesia options, risks, benefits, and alternatives with patient/parents/legal guardian/POA. Questions invited. The patient/parents/legal guardian/POA seems to understand and agrees to proceed with anesthesia plan. Reviewed the physical assessment, medical history, allergy history and patient home medications list prior to surgery/procedure/anesthetic and documented any changes. Performed airway and anesthesia risk assessments. Anesthesia Type Anesthesia Type: General (Consider [place] scope intubation.) History Source History Obtained from:: Patient and Chart Anesthesia Focused Assessment* Temperature: 98.3 F Pulse Rate: 79 Blood Pressure: 139/76 Respiratory Rate: 16 Pulse Ox: 97 Oxygen Delivery Method: Room Air Airway Assessment Mouth opens: >3 cm Mallampati Score: IV Teeth Condition: Partial (Patient has a lower partial. It is out.) Neck Range of motion (ROM): Full ROM Labs Anesthesia Preop lab: CBC WBC 6.8 K/mm3 (4.4-11.0) 10/27/24 08:30 10/27/24 RBC 4.72 M/mm3 (4.2-5.4) 10/27/24 08:30 10/27/24 Hgb 15.1 g/dL (12.0-15.0) H 10/27/24 08:30 5 Hct 43.7 % (37-47) 10/27/24 08:30 10/27/24 Plt Count 419 K/mm3 (150-450) 10/27/24 08:30 10/27/24 CHEMISTRY Potassium 4.3 mmol/L (3.3-5.1) 10/14/24 12:40 10/14/24 Sodium 137 mmol/L (133-145) 10/14/24 12:40 10/14/24 Magnesium 2.6 mg/dL (1.5-2.2) H 10/14/24 12:39 10/14/24 BUN 19 mg/dL (4-19) 10/14/24 12:40 10/14/24 Creatinine 0.87 mg/dL (0.70-1.20) 10/14/24 12:40 10/14/24 Glucose 78 mg/dL (70-99) 10/14/24 12:40 10/14/24 POC Glucose 136 mg/dL (74-106) H 10/27/24 08:21 10/27/24 TSH 1.450 uIU/mL (0.300-4.200) 10/14/24 12:39 0706/09 COAG Pre-Assessment Diagnosis/Proposed Procedure Planned Operative Procedure(s): TOTAL VAGINAL HYSTERECTOMY, BILATERAL SALPINGECTOMY Anesthesia History Anesthesia History - aluminum pool installer: Anesthesia History - aluminum pool installer Hx Hospitalization No 10/13/24 13:14 Any Problems With Anesthesia No 10/13/24 13:14 Cholinesterase deficiency No 10/13/24 13:14 You/Your Family Experience No 10/13/24 13:14 fever (hyperthermia) with Relationship Recent Exposure to Contagious No 10/27/24 08:44 Disease Does patient have nerve No 10/13/24 13:14 stimulator Patient instructed to have device shut off --Does patient have Pacemaker No 10/27/24 08:44 or ICD? When Was Last Pacemaker Check QUESTION #4 FULL TEXT: You/Your Family Experience fever (hyperthermia) with Anesthesia Last Oral Intake Last Oral intake: Last Oral Intake NPO since 07:00 10/27/24 08:44 Meds taken in AM with sips of Yes 10/27/24 08:44 water? Meds patient instructed to levothyroxine 10/27/24 08:44 take am of surgery Any additional information?: Yes NPO since: 07:00 (Patient had her preop Ensure at 7 AM.) Meds taken in AM with sips of water?: Yes PONV PONV - aluminum pool installer: PONV - aluminum pool installer Female Yes 10/13/24 13:14 HX of Motion Sickness No 10/13/24 13:14 HX of N/V After Surgery No 10/13/24 13:14 Non-Smoker Yes 10/13/24 13:14 Duration of Surgery greater Yes 10/13/24 13:14 than 60 minutes Number of Risk Factors 3 10/13/24 13:14 PONV Score Moderate Risk 10/13/24 13:14 Height & Weight Height & Weight: Anesthesia: Height & Weight Height 5 ft 7 in 10/27/24 08:44 Weight: 115 kg 10/27/24 08:44 Body Mass Index (BMI) 39.6 10/27/24 08:44 Respiratory Assessment Respiratory Assessment - aluminum pool installer: Respiratory Tract Infection Hx - aluminum pool installer Hx Respiratory Tract Infection No 10/13/24 13:14 STOP Sleep Apnea STOP Sleep Apnea - aluminum pool installer: STOP Sleep Apnea - aluminum pool installer Hx Hypertension No 10/13/24 13:14 Hx Sleep Apnea Yes 10/13/24 13:14 CPAP Yes 10/13/24 13:14 BIPAP No 10/13/24 13:14 Do you snore loudly (louder than talking or can be heard Do you often feel tired/ fatigued/ sleepy during daytime? Has anyone observed you stop breathing during sleep? STOP Results Positive 10/13/24 13:14 QUESTION #5 FULL TEXT : Do you snore loudly (louder than talking or can be heard through closed doors)? Tobacco Use History Tobacco Use History - aluminum pool installer: Tobacco Use History - aluminum pool installer Tobacco Use Smoking Status Never smoker 10/13/24 13:14 Hx Tobacco Use No 10/13/24 13:14 Years Smoking Packs Smoked per Day Smoking Cessation Date was within the last 15 years Hx Smoking Cessation Date Hx Smoking Cessation Counseling Hematologic Medial History Hematologic Hx - aluminum pool installer: Hematologic Medical Hx - dynamo tender Hx of Blood Transfusion Yes 10/13/24 13:14 Hx of Transfusion in last 3 No 10/13/24 13:14 Months Date of Last Transfusion (if within last 3 months) Ever experience any problems No 10/13/24 13:14 with transfusion(s)? Specify any problems Hx of Preganancy in last 3 No 10/13/24 13:14 Months Nurse Filling Out Transfusion VCHRISTIN 10/13/24 13:14 & Questions: Date: 10/13/24 10/13/24 13:14 Time: 13:15 10/13/24 13:14 Patient unable to answer at this time (ie. confused, unrespo /Reproduction History /Reproductive History - aluminum pool installer: /Reproductive Hx- aluminum pool installer Hx Now No 10/13/24 13:14 Gestational Age (in weeks): EDC: Hx Hx Para Hx Section SAB No 10/14/24 13:46 Active Medications Active Medications: Current Medications Generic Name Dose Route Start Last Admin Trade Name Freq PRN Reason Stop Dose Admin Acetaminophen 1,000 mg 10/27/24 10:00 10/27/24 08:51 Acetaminophen 500 Mg Tablet PO 10/27/24 10:01 1,000 mg PREOP ONE Administration Celecoxib 400 mg 10/27/24 10:00 10/27/24 08:51 Celecoxib 200 Mg Capsule PO 10/27/24 10:01 400 mg PREOP ONE Administration Dexamethasone Sodium Phosphate 8 mg 10/27/24 10:00 Dexamethasone 4 Mg/Ml Vial IV 10/27/24 10:01 INTRAOP ONE Enoxaparin Sodium 40 mg 10/27/24 10:00 10/27/24 08:52 Enoxaparin 40 Mg/0.4 Ml Syringe SC 10/27/24 10:01 40 mg PREOP ONE Administration Gabapentin 600 mg 10/27/24 10:00 10/27/24 08:51 Gabapentin 600 Mg Tablet PO 10/27/24 10:01 600 mg PREOP ONE Administration Lactated Ringer's 1,000 mls @ 40 mls/hr 10/27/24 10:00 10/27/24 08:33 IV 40 mls/hr .Q25H JACINTO Administration Clindamycin Phosphate 900 mg in 50 mls @ 75 mls/hr 10/27/24 10:00 Cleocin IV 10/27/24 10:39 INTRAOP ONE Gentamicin Sulfate 412 mg/ 60.3 mls @ 100 mls/hr 10/27/24 10:00 10/27/24 08:58 Dextrose IV 10/27/24 10:36 100 mls/hr INTRAOP ONE Administration Magnesium Sulfate 1 gm/ 102 mls @ 408 mls/hr 10/27/24 10:00 10/27/24 08:33 Dextrose IV 10/27/24 10:14 408 mls/hr INTRAOP ONE Administration Insulin Human Lispro 0 unit 10/27/24 10:00 Insulin Lispro 100 Unit/Ml Insuln.Pen SC Q4H PRN PRN BG >/= 180, SEE PROTOCOL Protocol Ondansetron HCl 4 mg 10/27/24 10:00 Ondansetron 4 Mg/2 Ml Vial IV 10/27/24 10:01 INTRAOP ONE Phenazopyridine HCl 190 mg 10/27/24 10:00 10/27/24 08:52 Phenazopyridine 95 Mg Tablet PO 10/27/24 10:01 190 mg PREOP ONE Administration Scopolamine HBr 1 patch 10/27/24 10:00 10/27/24 08:38 Scopolamine 1mg/72hr Patch TD 10/27/24 10:01 1 patch PREOP ONE Administration PFSH Medical History Cancer Thyroid disease High cholesterol CPAP (continuous positive airway pressure) dependence Sleep apnea Wears contact lenses Wears partial dentures Post-menopausal Low iron Migraine headache Heartburn Shortness of breath on exertion Non-smoker Leg cramps DVT (deep venous thrombosis) History of edema History of echocardiogram Aortic insufficiency Cardiology follow-up encounter Hypothyroidism Home Medications ?Medication ?Instructions ?Recorded ?Last Taken ?Type levothyroxine 50 mcg capsule 50 mcg PO DAILY 11/24/20 10/27/24 History triamcinolone acetonide 0.1 % 1 applic topical DAILY P RN itching 01/02/24 Unknown History topical cream megestrol 40 mg tablet 40 mg PO DAILY 10/13/24 Unkn own History allergy eye drops EACH EYE DAILY 10/14/24 Unkn own History Allergy/AdvReac Type Severity Reaction Status Date / Time Penicillins Allergy Intermediate PT UNSURE Verified 10/27/24 08:32 OF REACTION Environmental Allergies: Allergy Contact Verified 10/27/24 08:32 Uncoded Dermatitis doxycycline AdvReac Intermediate Other Verified 10/27/24 08:32 Family History Mother Heart disease Father Hypertension Gout Sister Lymphoma Surgical History History of hysteroscopy History of ankle surgery Hx of wisdom tooth extraction Status post surgical removal of malignant neoplasm of skin History of splenectomy Social History household members: spouse and children number of children: 4 current occupational status: employed current occupation: [employer]- works from home. history of recent travel: No sexually active: Yes Smoking Status: Never smoker alcohol intake: never substance use type: does not use what type of physical activity do you participate in: walking seatbelt use: always do you feel safe at home: Yes additional social history: - Jose Manuel Review of Systems (Anesthesia) ROS Narrative System reviewed and no additional complaints, except as documented.
--- NOTE | 2024-10-27 09:28 | PRE.ANES_ITS ---
ASA Classification* ASA Classification ASA Classification: 3 Assessment & Plan Anesthesia* Anesthesia Assessment Anesthesia Assessment: Discussed sedation and/or anesthesia options, risks, benefits, and alternatives with patient/parents/legal guardian/POA. Questions invited. The patient/parents/legal guardian/POA seems to understand and agrees to proceed with anesthesia plan. Reviewed the physical assessment, medical history, allergy history and patient home medications list prior to surgery/procedure/anesthetic and documented any changes. Performed airway and anesthesia risk assessments. Anesthesia Type Anesthesia Type: General (Consider [place] scope intubation.) History Source History Obtained from:: Patient and Chart Anesthesia Focused Assessment* Temperature: 98.3 F Pulse Rate: 79 Blood Pressure: 139/76 Respiratory Rate: 16 Pulse Ox: 97 Oxygen Delivery Method: Room Air Airway Assessment Mouth opens: >3 cm Mallampati Score: IV Teeth Condition: Partial (Patient has a lower partial. It is out.) Neck Range of motion (ROM): Full ROM Labs Anesthesia Preop lab: CBC WBC 6.8 K/mm3 (4.4-11.0) 10/27/24 08:30 10/27/24 RBC 4.72 M/mm3 (4.2-5.4) 10/27/24 08:30 10/27/24 Hgb 15.1 g/dL (12.0-15.0) H 10/27/24 08:30 5 Hct 43.7 % (37-47) 10/27/24 08:30 10/27/24 Plt Count 419 K/mm3 (150-450) 10/27/24 08:30 10/27/24 CHEMISTRY Potassium 4.3 mmol/L (3.3-5.1) 10/14/24 12:40 10/14/24 Sodium 137 mmol/L (133-145) 10/14/24 12:40 10/14/24 Magnesium 2.6 mg/dL (1.5-2.2) H 10/14/24 12:39 10/14/24 BUN 19 mg/dL (4-19) 10/14/24 12:40 10/14/24 Creatinine 0.87 mg/dL (0.70-1.20) 10/14/24 12:40 10/14/24 Glucose 78 mg/dL (70-99) 10/14/24 12:40 10/14/24 POC Glucose 136 mg/dL (74-106) H 10/27/24 08:21 10/27/24 TSH 1.450 uIU/mL (0.300-4.200) 10/14/24 12:39 0706/09 COAG Pre-Assessment Diagnosis/Proposed Procedure Planned Operative Procedure(s): TOTAL VAGINAL HYSTERECTOMY, BILATERAL SALPINGECTOMY Anesthesia History Anesthesia History - group rooms coordinator: Anesthesia History - group rooms coordinator Hx Hospitalization No 10/13/24 13:14 Any Problems With Anesthesia No 10/13/24 13:14 Cholinesterase deficiency No 10/13/24 13:14 You/Your Family Experience No 10/13/24 13:14 fever (hyperthermia) with Relationship Recent Exposure to Contagious No 10/27/24 08:44 Disease Does patient have nerve No 10/13/24 13:14 stimulator Patient instructed to have device shut off --Does patient have Pacemaker No 10/27/24 08:44 or ICD? When Was Last Pacemaker Check QUESTION #4 FULL TEXT: You/Your Family Experience fever (hyperthermia) with Anesthesia Last Oral Intake Last Oral intake: Last Oral Intake NPO since 07:00 10/27/24 08:44 Meds taken in AM with sips of Yes 10/27/24 08:44 water? Meds patient instructed to levothyroxine 10/27/24 08:44 take am of surgery Any additional information?: Yes NPO since: 07:00 (Patient had her preop Ensure at 7 AM.) Meds taken in AM with sips of water?: Yes PONV PONV - group rooms coordinator: PONV - group rooms coordinator Female Yes 10/13/24 13:14 HX of Motion Sickness No 10/13/24 13:14 HX of N/V After Surgery No 10/13/24 13:14 Non-Smoker Yes 10/13/24 13:14 Duration of Surgery greater Yes 10/13/24 13:14 than 60 minutes Number of Risk Factors 3 10/13/24 13:14 PONV Score Moderate Risk 10/13/24 13:14 Height & Weight Height & Weight: Anesthesia: Height & Weight Height 5 ft 7 in 10/27/24 08:44 Weight: 115 kg 10/27/24 08:44 Body Mass Index (BMI) 39.6 10/27/24 08:44 Respiratory Assessment Respiratory Assessment - group rooms coordinator: Respiratory Tract Infection Hx - group rooms coordinator Hx Respiratory Tract Infection No 10/13/24 13:14 STOP Sleep Apnea STOP Sleep Apnea - group rooms coordinator: STOP Sleep Apnea - group rooms coordinator Hx Hypertension No 10/13/24 13:14 Hx Sleep Apnea Yes 10/13/24 13:14 CPAP Yes 10/13/24 13:14 BIPAP No 10/13/24 13:14 Do you snore loudly (louder than talking or can be heard Do you often feel tired/ fatigued/ sleepy during daytime? Has anyone observed you stop breathing during sleep? STOP Results Positive 10/13/24 13:14 QUESTION #5 FULL TEXT : Do you snore loudly (louder than talking or can be heard through closed doors)? 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 Specify any problems Hx of Preganancy in last 3 No 10/13/24 13:14 Months Nurse Filling Out Transfusion VCHRISTIN 10/13/24 13:14 & Questions: Date: 10/13/24 10/13/24 13:14 Time: 13:15 10/13/24 13:14 Patient unable to answer at this time (ie. confused, unrespo /Reproduction History /Reproductive History - group rooms coordinator: /Reproductive Hx- group rooms coordinator Hx Now No 10/13/24 13:14 Gestational Age (in weeks): EDC: Hx Hx Para Hx Section SAB No 10/14/24 13:46 Active Medications Active Medications: Current Medications Generic Name Dose Route Start Last Admin Trade Name Freq PRN Reason Stop Dose Admin Acetaminophen 1,000 mg 10/27/24 10:00 10/27/24 08:51 Acetaminophen 500 Mg Tablet PO 10/27/24 10:01 1,000 mg PREOP ONE Administration Celecoxib 400 mg 10/27/24 10:00 10/27/24 08:51 Celecoxib 200 Mg Capsule PO 10/27/24 10:01 400 mg PREOP ONE Administration Dexamethasone Sodium Phosphate 8 mg 10/27/24 10:00 Dexamethasone 4 Mg/Ml Vial IV 10/27/24 10:01 INTRAOP ONE Enoxaparin Sodium 40 mg 10/27/24 10:00 10/27/24 08:52 Enoxaparin 40 Mg/0.4 Ml Syringe SC 10/27/24 10:01 40 mg PREOP ONE Administration Gabapentin 600 mg 10/27/24 10:00 10/27/24 08:51 Gabapentin 600 Mg Tablet PO 10/27/24 10:01 600 mg PREOP ONE Administration Lactated Ringer's 1,000 mls @ 40 mls/hr 10/27/24 10:00 10/27/24 08:33 IV 40 mls/hr .Q25H JACINTO Administration Clindamycin Phosphate 900 mg in 50 mls @ 75 mls/hr 10/27/24 10:00 Cleocin IV 10/27/24 10:39 INTRAOP ONE Gentamicin Sulfate 412 mg/ 60.3 mls @ 100 mls/hr 10/27/24 10:00 10/27/24 08:58 Dextrose IV 10/27/24 10:36 100 mls/hr INTRAOP ONE Administration Magnesium Sulfate 1 gm/ 102 mls @ 408 mls/hr 10/27/24 10:00 10/27/24 08:33 Dextrose IV 10/27/24 10:14 408 mls/hr INTRAOP ONE Administration Insulin Human Lispro 0 unit 10/27/24 10:00 Insulin Lispro 100 Unit/Ml Insuln.Pen SC Q4H PRN PRN BG >/= 180, SEE PROTOCOL Protocol Ondansetron HCl 4 mg 10/27/24 10:00 Ondansetron 4 Mg/2 Ml Vial IV 10/27/24 10:01 INTRAOP ONE Phenazopyridine HCl 190 mg 10/27/24 10:00 10/27/24 08:52 Phenazopyridine 95 Mg Tablet PO 10/27/24 10:01 190 mg PREOP ONE Administration Scopolamine HBr 1 patch 10/27/24 10:00 10/27/24 08:38 Scopolamine 1mg/72hr Patch TD 10/27/24 10:01 1 patch PREOP ONE Administration PFSH Medical History Cancer Thyroid disease High cholesterol CPAP (continuous positive airway pressure) dependence Sleep apnea Wears contact lenses Wears partial dentures Post-menopausal Low iron Migraine headache Heartburn Shortness of breath on exertion Non-smoker Leg cramps DVT (deep venous thrombosis) History of edema History of echocardiogram Aortic insufficiency Cardiology follow-up encounter Hypothyroidism Home Medications ?Medication ?Instructions ?Recorded ?Last Taken ?Type levothyroxine 50 mcg capsule 50 mcg PO DAILY 11/24/20 10/27/24 History triamcinolone acetonide 0.1 % 1 applic topical DAILY P RN itching 01/02/24 Unknown History topical cream megestrol 40 mg tablet 40 mg PO DAILY 10/13/24 Unkn own History allergy eye drops EACH EYE DAILY 10/14/24 Unkn own History Allergy/AdvReac Type Severity Reaction Status Date / Time Penicillins Allergy Intermediate PT UNSURE Verified 10/27/24 08:32 OF REACTION Environmental Allergies: Allergy Contact Verified 10/27/24 08:32 Uncoded Dermatitis doxycycline AdvReac Intermediate Other Verified 10/27/24 08:32 Family History Mother Heart disease Father Hypertension Gout Sister Lymphoma Surgical History History of hysteroscopy History of ankle surgery Hx of wisdom tooth extraction Status post surgical removal of malignant neoplasm of skin History of splenectomy Social History household members: spouse and children number of children: 4 current occupational status: employed current occupation: [employer]- works from home. history of recent travel: No sexually active: Yes Smoking Status: Never smoker alcohol intake: never substance use type: does not use what type of physical activity do you participate in: walking seatbelt use: always do you feel safe at home: Yes additional social history: - Jose Manuel Review of Systems (Anesthesia) ROS Narrative System reviewed and no additional complaints, except as documented.
--- NOTE | 2024-10-27 09:54 | OP.PCM_ITS ---
Problems Associated Problem List Diagnoses (1) PMB (postmenopausal bleeding): (2) Postmenopausal bleeding: (3) Simple endometrial hyperplasia without atypia: Multi Select Codes Urinary/Genital Urinary/Genital CPT Codes: 65653 TVH <250 gr uterus Operative Report (Standard) Operative Information Date of Procedure: 10/27/24 Pre-Operative Diagnosis: see problem list details Post-Operative Diagnosis: same Surgery/Procedure Performed: total vaginal hysterectomy funeral pre arrangement counselor: Yes Mc Kay Stitcher: Dusty Hanley Tasks completed by family law legal assistant: Opening & closing and Retracting Type of Anesthesia: General RN Documented Start/Stop Times: Operation Date: 10/27/24 10:00 Case Time Into Pre-Op 10/27/24 07:57 Out of Pre-Op 10/27/24 10:08 Anesthesia Start 10/27/24 10:12 Into Room 10/27/24 10:12 Procedure Start 10/27/24 10:32 Procedure End 10/27/24 12:09 Procedure Start Time: 10:32 Procedure Stop Time: 12:09 Select all DRAINS/GRAFTS/IMPLANTS that apply: Drains Drain details: kennedy Estimated Blood Loss: 250 Specimen collected: Yes Description of specimen(s) removed: uterus Description of surgery: Patient was taken to the operating room and was placed under general anesthesia was prepped and draped in normal sterile fashion in the dorsal lithotomy position. Preoperative antibiotics and SCDs and Kennedy catheter was placed inside the bladder. Weighted speculum was placed in the vagina and the anterior and posterior lip of the cervix was grasped with 2 Crescencio clamps and circumferentially injected with dilute vasopressin. A circumferential incision was made with a scalpel and the posterior cul-de-sac was entered into sharply and a longneck speculum was placed. The anterior cul-de-sac was also dissected down and entered into sharply and the uterosacral ligaments were clamped cut and suture ligated bilaterally followed by the cardinal ligaments which were Clamped cut and suture ligated bilaterally with 0 Monocryl. The uterus serially descended and progressive bites were taken bilaterally up to the level of the utero-ovarian ligament bilaterally which was clamped transected and double ligated with 0 Monocryl suture and 0 Vicryl free tie. vaginal access was limited and difficult due to personal anatomy and body habitus. uterus was mildly enlarged with pelvic congestion noted, bogginess in texture. Bilateral fallopian tubes and ovaries were well visualized and noted be within normal limits and the bilateral fallopian tubes were noted to be too difficult to get too they were too high outside of the safe operative field, therefore the decision was made to leave them in situ. Excellent hemostasis was noted. The vagina was closed with [id number] 0 Vicryl pop offs including the posterior and anterior peritoneum in the reapproximation. Excellent hemostasis was noted. All instruments removed from the vagina clear urine was noted at the end of the procedure. Surgical Findings: overall normal uterus tubes, and ovaries, pelvic congestion and uterine bogginess noted. Complications Complications: No
--- NOTE | 2024-10-27 09:54 | OP.PCM_ITS ---
Problems Associated Problem List Diagnoses (1) PMB (postmenopausal bleeding): (2) Postmenopausal bleeding: (3) Simple endometrial hyperplasia without atypia: Multi Select Codes Urinary/Genital Urinary/Genital CPT Codes: 90428 TVH <250 gr uterus Operative Report (Standard) Operative Information Date of Procedure: 10/27/24 Pre-Operative Diagnosis: see problem list details Post-Operative Diagnosis: same Surgery/Procedure Performed: total vaginal hysterectomy beam doffer: Yes Electromechanical Assembly Technician: Dusty Hanley Tasks completed by welder first class: Opening & closing and Retracting Type of Anesthesia: General RN Documented Start/Stop Times: Operation Date: 10/27/24 10:00 Case Time Into Pre-Op 10/27/24 07:57 Out of Pre-Op 10/27/24 10:08 Anesthesia Start 10/27/24 10:12 Into Room 10/27/24 10:12 Procedure Start 10/27/24 10:32 Procedure End 10/27/24 12:09 Procedure Start Time: 10:32 Procedure Stop Time: 12:09 Select all DRAINS/GRAFTS/IMPLANTS that apply: Drains Drain details: kennedy Estimated Blood Loss: 250 Specimen collected: Yes Description of specimen(s) removed: uterus Description of surgery: Patient was taken to the operating room and was placed under general anesthesia was prepped and draped in normal sterile fashion in the dorsal lithotomy position. Preoperative antibiotics and SCDs and Kennedy catheter was placed inside the bladder. Weighted speculum was placed in the vagina and the anterior and posterior lip of the cervix was grasped with 2 Crescencio clamps and circumferentially injected with dilute vasopressin. A circumferential incision was made with a scalpel and the posterior cul-de-sac was entered into sharply and a longneck speculum was placed. The anterior cul-de-sac was also dissected down and entered into sharply and the uterosacral ligaments were clamped cut and suture ligated bilaterally followed by the cardinal ligaments which were Clamped cut and suture ligated bilaterally with 0 Monocryl. The uterus serially descended and progressive bites were taken bilaterally up to the level of the utero-ovarian ligament bilaterally which was clamped transected and double ligated with 0 Monocryl suture and 0 Vicryl free tie. vaginal access was limited and difficult due to personal anatomy and body habitus. uterus was mildly enlarged with pelvic congestion noted, bogginess in texture. Bilateral fallopian tubes and ovaries were well visualized and noted be within normal limits and the bilateral fallopian tubes were noted to be too difficult to get too they were too high outside of the safe operative field, therefore the decision was made to leave them in situ. Excellent hemostasis was noted. The vagina was closed with [id number] 0 Vicryl pop offs including the posterior and anterior peritoneum in the reapproximation. Excellent hemostasis was noted. All instruments removed from the vagina clear urine was noted at the end of the procedure. Surgical Findings: overall normal uterus tubes, and ovaries, pelvic congestion and uterine bogginess noted. Complications Complications: No
--- NOTE | 2024-10-27 09:58 | PCM.DC ---
Discharge Instructions DC O2, CPAP, BIPAP needs Home O2 Discharge instructions: No Dressing / Incision Discharge Activity: Return to Normal Activity, May Not Drive (while taking narcotic pain medications.) and May Shower May resume sexual activity in: 6-8 weeks Dressing / Incision Call your doctor if your incision/area has: Continuous Slow Oozing, Sudden Increased Bleeding, Increased Pain/ Swelling, Increased Redness and Foul Smelling Discharge Call your doctor if you observe: Fever of 101 or Higher, Inability to urinate, Inability to have a bowel movement and Using more than 1 pad per hour Follow Up Care Please Follow Up With: Leelee Cruz MD Test Results: Test results from this visit will be discussed in further detail at your follow-up appointment, if applicable. Discharge Plan Admission Attending Provider: Leelee Cruz Primary Care Provider: Carlos Cutler Instructions Print Language: Ukrainian Discharge Orders/Prescriptions Prescriptions: No Action levothyroxine 50 mcg capsule 50 mcg PO DAILY allergy eye drops EACH EYE DAILY megestrol 40 mg tablet 40 mg PO DAILY Rx Instructions: take BID if breakthrough bleeding or once daily if not bleeding triamcinolone acetonide 0.1 % cream 1 applic topical DAILY PRN (Reason: itching) Referrals / Follow Up: Carlos Cutler MD [Primary Care Provider] - Disposition Disposition (needs filled in before D/C Order can be placed): Home, Self Care
--- NOTE | 2024-10-27 10:00 | UT_PTH ---
PATIENT: MEHDI AHSTON LOC: [facility] [place] U#:[id number] AGE/SX: 59/F ROOM: RE10/27/[address]: Dr. Leelee Cruz MD : 1965 BED: DIS: 10/27/2024 SPEC #: [id number] RECD: 10/27/24 14:59 STATUS: JOSSUE REKathryn #: [id number] ISMAEL: 10/27/24 10:[address]: Leelee Cruz DEPT: SURGICAL PATHOLOGY RECD BY: Maninder Jade ENTERED: 10/27/24 14:59 SP TYPE: UTERUS OTHR DR: Dr. Carlos Cutler MD Tissues: A - Uterus, NOS Procedures: Immunohistochemical Stains Surgery Specimen Level V HEADER OPERATION: Total vaginal hysterectomy PRE-OP DIAGNOSIS: Postmenopausal bleeding, simple endometrial hyperplasia without atypia TISSUE SUBMITTED: A- Uterus, cervix MICROSCOPIC DIAGNOSIS A. Uterus, cervix, hysterectomy: * Cervix: Benign squamous epithelium and endocervical glandular tissue with atrophic changes (See note) * Endometrium: Inactive endometrium with decidualized stromal alteration compatible with hormonal therapy effect * Myometrium: Extensive adenomyosis Note: The p16 immunostain is negative supporting the diagnosis. * MICROSCOPIC DESCRIPTION Slides are reviewed. All matched controls reacted appropriately. These tests were developed and their performance characteristics determined by [facility]. They may not have been cleared or approved by the U.S. Food and Drug Administration. The FDA has determined that such clearance or approval is not necessary. The above immunohistochemical/dualISH markers are viewed by the Pathologist. GROSS DESCRIPTION A. Received in formalin labeled with the patient's name and date of . Designated as uterus, cervix is a 156.5 g, 7.8 x 6.4 x 4.5 cm uterus devoid of attached adnexa. The serosa is pink-red and shaggy with adhesions and multiple, full-thickness defects (that appear iatrogenic in nature). The attached cervix is flores-pink and measures 3.3 x 2.9; the 1.4 cm os is patent. The specimen is oriented using the posterior peritoneal reflection The specimen is inked as follows: Fymqmzyd-rtlnmHqtesxpuq-wmxurIqnmrmuzbnw-orange Opening reveals a 4.9 x 2.6 cm endometrial canal lined by pale flores, lobulated and somewhat irregular endometrium measuring up to 2.4 cm thick. Grossly, the endometrium is fibrotic and appears to extend up to 1.0 cm into the underlying myometrium which is flores-pink trabeculated and somewhat fibrotic, measuring up 2.3cm. Feed Weigher sections, to include up to 90% of the endometrium (from lower uterine segment to cornu), are submitted as follows: A1: Anterior cervixA2: Posterior cervixA3-A10: Anterior endometriumA 11: Anterior [id number]: Posterior hpffirvlymkC97: Posterior myometrium [place] 10/27/2024 CPT:12482,[id number]
--- NOTE | 2024-10-27 10:00 | UT_PTH ---
PATIENT: MEHDI ASHTON [place] [facility] [place][id number] AGE/SX: 59/F ROOM: RE10/27/[address]: Dr. Leelee Cruz MD : 1965 BED: DIS: 10/27/2024 SPEC #: [id number] RECD: 10/27/24 14:59 STATUS: JOSSUE REKathryn #: [id number] ISMAEL: 10/27/24 10:[address]: Leelee Cruz DEPT: SURGICAL PATHOLOGY RECD BY: Maninder Jade ENTERED: 10/27/24 14:59 SP TYPE: UTERUS OTHR DR: Dr. Carlos Cutler MD Tissues: A - Uterus, NOS Procedures: Immunohistochemical Stains Surgery Specimen Level V HEADER OPERATION: Total vaginal hysterectomy PRE-OP DIAGNOSIS: Postmenopausal bleeding, simple endometrial hyperplasia without atypia TISSUE SUBMITTED: A- Uterus, cervix MICROSCOPIC DIAGNOSIS A. Uterus, cervix, hysterectomy: * Cervix: Benign squamous epithelium and endocervical glandular tissue with atrophic changes (See note) * Endometrium: Inactive endometrium with decidualized stromal alteration compatible with hormonal therapy effect * Myometrium: Extensive adenomyosis Note: The p16 immunostain is negative supporting the diagnosis. * MICROSCOPIC DESCRIPTION Slides are reviewed. All matched controls reacted appropriately. These tests were developed and their performance characteristics determined by [facility]. They may not have been cleared or approved by the U.S. Food and Drug Administration. The FDA has determined that such clearance or approval is not necessary. The above immunohistochemical/dualISH markers are viewed by the Pathologist. GROSS DESCRIPTION A. Received in formalin labeled with the patient's name and date of . Designated as uterus, cervix is a 156.5 g, 7.8 x 6.4 x 4.5 cm uterus devoid of attached adnexa. The serosa is pink-red and shaggy with adhesions and multiple, full-thickness defects (that appear iatrogenic in nature). The attached cervix is flores-pink and measures 3.3 x 2.9; the 1.4 cm os is patent. The specimen is oriented using the posterior peritoneal reflection The specimen is inked as follows: Mhpfhitv-lljwfMyrjifyca-getbqBqqyhuzrsub-orange Opening reveals a 4.9 x 2.6 cm endometrial canal lined by pale flores, lobulated and somewhat irregular endometrium measuring up to 2.4 cm thick. Grossly, the endometrium is fibrotic and appears to extend up to 1.0 cm into the underlying myometrium which is flores-pink trabeculated and somewhat fibrotic, measuring up 2.3cm. Route Process Administrator sections, to include up to 90% of the endometrium (from lower uterine segment to cornu), are submitted as follows: A1: Anterior cervixA2: Posterior cervixA3-A10: Anterior endometriumA 11: Anterior lajwuakljpC31-P40: Posterior aezuutpblcmE35: Posterior myometrium [place] 10/27/2024 CPT:[id number]
--- NOTE | 2024-10-27 13:10 | PCM.POST.ANE ---
Anesthesia: Postop Eval I Current Vital Signs Temperature: 97.7 F Pulse Rate: 72 Blood Pressure: 129/68 Respiratory Rate: 16 Pulse Ox: 93 Assessment Airway patent: Yes Spontaneous unlabored respirations: Yes nausea: No Vomiting: No Anesthesia Complication: No Fluid Hydration Crystalloid volume administer (ml): 1,200 Total IV fluid infused: 1,200 Progress Note Anesthesia document: Postop Eval 1 completed: Yes
[2024-10-27] MEDS: Ketorolac 30 MG/ML Syringe IV (13:29)
[2024-10-27 15:35] LABS: Hematocrit 44.4 % (37-47); Hemoglobin 14.9 g/dL (12.0-15.0); Mean Corp Hgb Conc 33.6 g/dL (32-36); Mean Corpuscular Volume 93.5 fL (81-99); Mean Platelet Vol. 9.5 fl (6.2-12.0); Platelet Count 411 K/mm3 (150-450); RBC Distribution Width CV 13.8 % (11.6-14.6); RBC Distribution Width SD 48.0 fl (35.1-43.9); Red Blood Count 4.75 M/mm3 (4.2-5.4); White Blood Count 14.0 K/mm3 (4.4-11.0)
--- NOTE | 2024-10-27 19:10 | POSTOPAN2_ITS ---
Anesthesia Postop Eval I Sum Postop Eval Completion status Anesthesia document: Postop Eval 1 completed: Yes Anesthesia Postop Eval I Summary Anesthesia Postop Eval I Summary: Anesthesia Postop Eval I: Assessment Summary Airway patent Yes 10/27/24 13:10 ENDBAND CUTTER HAND.TNES Spontaneous unlabored Yes 10/27/24 13:10 ENDBAND CUTTER HAND.TNES respirations Mental status nausea No 10/27/24 13:10 ENDBAND CUTTER HAND.TNES Vomiting No 10/27/24 13:10 ENDBAND CUTTER HAND.TNES Anesthesia Postop Eval I: Fluid Summary Crystalloid volume administer 1,200 10/27/24 13:10 ENDBAND CUTTER HAND.TNES (ml) Colloids volume administered ( ml) Blood Product volume administered (ml) Total IV fluid infused 1,200 10/27/24 13:10 ENDBAND CUTTER HAND.TNES Anesthesia Postop Eval I: Summary Notes Anesthesia Complication No 10/27/24 13:10 ENDBAND CUTTER HAND.TNES Anesthesia Complication Comment: Post-operative progress note Anesthesia: Postop Eval II Evaluation Mental status: Awake and Calm Pain Level: 2 nausea: No Vomiting: No Complications Anesthesia Complication: No
--- NOTE | 2024-10-27 19:10 | POSTOPAN2_ITS ---
Anesthesia Postop Eval I Sum Postop Eval Completion status Anesthesia document: Postop Eval 1 completed: Yes Anesthesia Postop Eval I Summary Anesthesia Postop Eval I Summary: Anesthesia Postop Eval I: Assessment Summary Airway patent Yes 10/27/24 13:10 MOLDING [email or web address] Spontaneous unlabored Yes 10/27/24 13:10 MOLDING LINE [email or web address] respirations Mental status nausea No 10/27/24 13:10 MOLDING LINE [email or web address] Vomiting No 10/27/24 13:10 MOLDING LINE [email or web address] Anesthesia Postop Eval I: Fluid Summary Crystalloid volume administer 1,200 10/27/24 13:10 MOLDING LINE [email or web address] (ml) Colloids volume administered ( ml) Blood Product volume administered (ml) Total IV fluid infused 1,200 10/27/24 13:10 MOLDING LINE [email or web address].[email or web address] Anesthesia Postop Eval I: Summary Notes Anesthesia Complication No 10/27/24 13:10 MOLDING LINE [email or web address] Anesthesia Complication Comment: Post-operative progress note Anesthesia: Postop Eval II Evaluation Mental status: Awake and Calm Pain Level: 2 nausea: No Vomiting: No Complications Anesthesia Complication: No
--- NOTE | 2024-10-27 19:10 | PCM.POSTANE2 ---
Anesthesia Postop Eval I Sum Postop Eval Completion status Anesthesia document: Postop Eval 1 completed: Yes Anesthesia Postop Eval I Summary Anesthesia Postop Eval I Summary: Anesthesia Postop Eval I: Assessment Summary Airway patent Yes 10/27/24 13:10 SETUP [email or web address] Spontaneous unlabored Yes 10/27/24 13:10 SETUP [email or web address] respirations Mental status nausea No 10/27/24 13:10 SETUP [email or web address] Vomiting No 10/27/24 13:10 SETUP [email or web address] Anesthesia Postop Eval I: Fluid Summary Crystalloid volume administer 1,200 10/27/24 13:10 SETUP [email or web address] (ml) Colloids volume administered ( ml) Blood Product volume administered (ml) Total IV fluid infused 1,200 10/27/24 13:10 SETUP [email or web address] Anesthesia Postop Eval I: Summary Notes Anesthesia Complication No 10/27/24 13:10 SETUP [email or web address] Anesthesia Complication Comment: Post-operative progress note Anesthesia: Postop Eval II Evaluation Mental status: Awake and Calm Pain Level: 2 nausea: No Vomiting: No Complications Anesthesia Complication: No
--- NOTE | 2024-10-27 19:10 | PCM.POSTANE2 ---
Anesthesia Postop Eval I Sum Postop Eval Completion status Anesthesia document: Postop Eval 1 completed: Yes Anesthesia Postop Eval I Summary Anesthesia Postop Eval I Summary: Anesthesia Postop Eval I: Assessment Summary Airway patent Yes 10/27/24 13:10 CALIBRATOR [email or web address] Spontaneous unlabored Yes 10/27/24 13:10 CALIBRATOR [email or web address] respirations Mental status nausea No 10/27/24 13:10 CALIBRATOR [email or web address] Vomiting No 10/27/24 13:10 CALIBRATOR [email or web address] Anesthesia Postop Eval I: Fluid Summary Crystalloid volume administer 1,200 10/27/24 13:10 CALIBRATOR [email or web address] (ml) Colloids volume administered ( ml) Blood Product volume administered (ml) Total IV fluid infused 1,200 10/27/24 13:10 CALIBRATOR [email or web address] Anesthesia Postop Eval I: Summary Notes Anesthesia Complication No 10/27/24 13:10 CALIBRATOR [email or web address] Anesthesia Complication Comment: Post-operative progress note Anesthesia: Postop Eval II Evaluation Mental status: Awake and Calm Pain Level: 2 nausea: No Vomiting: No Complications Anesthesia Complication: No
== END 2024-10-27 16:58 | disposition home or self-care (01) ==
LOC: SDC 07:48 → AC 07:49
PROVIDERS: Anesthesiology; PCP Family Medicine; Referring Provider Obstetrics & Gynecology; Visit Provider Obstetrics & Gynecology
PROC: (CPT 58260; principal; 2024-10-27 09:40)
DX: N80.03 Adenomyosis of the uterus (principal); Z79.4 Long term (current) use of insulin; N95.0 Postmenopausal bleeding; E78.00 Pure hypercholesterolemia, unspecified; Z86.718 Personal history of other venous thrombosis and embolism; E03.9 Hypothyroidism, unspecified; Z79.890 Hormone replacement therapy
CPT/HCPCS: 58260; 00944; 36415; 80053; 82962; 83735; 84443; 85025; 85027; 86850; 86900; 86901; 88307; 88342; 93005; A4216; J2405; J3475